=== PATIENT | male | born 1950 | race Caucasian/White ===

== ENCOUNTER 2016-08-25 12:10 | Emergency (ER) | payer BC ==
[2016-08-25] MEDS ORDERED: NS 0.9% 1000 ML* 1,000 ML IV ONE (12:34)
--- NOTE | 2016-08-25 13:33 | RAD ---
INDICATION: CHF and pneumonia. COMPARISON: Comparison is made with a prior chest x-ray study from April 13, 2013. TECHNIQUE: A portable view of the chest was obtained. FINDINGS: The heart appears mildly enlarged and unchanged. The lungs are clear. No pleural effusion is seen. IMPRESSION: NO EVIDENCE FOR ACUTE DISEASE.
[2016-08-25 13:43] LABS: Hematocrit 40 % (42-52); Hemoglobin 13.2 g/dl (14.0-18.0); Mean Corpuscular HGB Conc 33 g/dl (31-36); Mean Corpuscular Hemoglobin 28 pg (27-31); Mean Corpuscular Volume 85 fL (80-94); Mean Platelet Volume 9 um3 (7.4-10.4); Red Blood Count 4.68 10^6/ul (4.0-5.4); Red Cell Distribution Width 19 % (10.5-15); White Blood Count 3.9 10^3/ul (3.5-10.8)
[2016-08-25 13:59] LABS: Albumin 4.6 g/dL (3.2-5.2); BUN/Creatinine Ratio 29.8 (8-20); Calcium 9.9 mg/dL (8.6-10.3); Comments Flag Yes; EGFR African American 185.1 (>60); EGFR Non-African American 143.9 (>60); Globulin 3.4 g/dL (2-4); Magnesium 1.7 mg/dL (1.9-2.7); Potassium 4.2 mmol/L (3.5-5.0); Total Bilirubin 2.6 mg/dL (0.2-1.0)
[2016-08-25 14:00] LABS: Add Diff/Slide Review? Slide Review Added; Troponin I 0.01 ng/mL (<0.04)
[2016-08-25] MEDS ORDERED: Magnesium Sulfate 1 GM IV* 1 GM/100 ML BAG IV ONE (14:23)
[2016-08-25 14:32] LABS: TSH (Thyroid Stimulating Horm) 0.89 mcIU/mL (0.34-5.60)
[2016-08-25] MEDS ORDERED: Midazolam* 1 MG/ML 5 ML VIAL (5 MG) ONE ×2 (14:41→16:06)
[2016-08-25] MEDS ORDERED: fentaNYL* 50 MCG/ML 2 ML VIAL (100 MCG VIAL) ONE (14:42)
[2016-08-25] MEDS ORDERED: Flumazenil* 0.1 MG/ML 5 ML MDV ONE (14:42)
[2016-08-25] MEDS ORDERED: Naloxone* 0.4 MG/ML 1 ML VIAL ONE (14:42)
[2016-08-25 15:00] LABS: Ferritin 173.3 ng/mL (24-336)
[2016-08-25] MEDS ORDERED: LORazepam TAB(*) 1 MG PO ONE (17:53)
[2016-08-25 19:20] VITALS: BP 92/73
--- NOTE | 2016-08-25 22:02 | ED ---
Jyoti Hitchcock Salem, scribed for Santos Timmons MD on 08/25/16 at 1313 . Palpitations / Dysrhythmia - HPI Summary HPI Summary: Patient is a 66 y/o M who presents to the ED with palpitations since 0200 this morning. He states that when he took his pulse at that time and noticed a 14 beat cycle: 12 beats, pause, and then 2 fast ones. He also states that his BP at 0200 was in the 180s-190s/110 and HR 90, and at 0300 it was around 160/90. He reports hot flash, diaphoresis, and SOB, but denies edema, CP, or a hx of A fib. Pt has an appointment with Dr. Cornejo before the end of the month. Pt states that he colpsed earlier this week and was too weak to get up, but conscious. PMHx of Hematomacrosis, HTN, and apnea. He also states that he has had his heart defibrillated twice before. Pt is on Xarelto. - History of Current Complaint Chief Complaint: EDDysrhythmPalp Time Seen by Provider: 08/25/16 12:57 Hx Obtained From: Patient, Family/Cooler Supervisor - Cousin. Onset/Duration: Gradual Onset, Lasting Hours, Still Present Timing: Constant Severity Initially: Moderate Severity Currently: Moderate Character: Fast, Irregular, Skipped Beats Aggravating: Nothing Alleviating: Nothing Associated Signs & Symptoms: Shortness of Breath, Diaphoresis - Allergy/Home Medications Allergies/Adverse Reactions: Allergies Allergy/AdvReac Type Severity Reaction Status Date / Time Morphine Allergy Unknown Nausea And Verified 04/15/14 10:44 Vomiting Ibuprofen Allergy Palpitation Verified 08/25/16 12:45 s PMH/Surg Hx/FS Hx/Imm Hx Endocrine/Hematology History: Reports: Hx Blood Disorders - hemachromatosis Denies: Hx Diabetes, Hx Sickle Cell Disease Cardiovascular History: Reports: Hx Hypercholesterolemia, Hx Hypertension - ON MEDS, Other Cardiovascular Problems/Disorders - A FIB, CARDIOVERSION X 2 Respiratory History: Reports: Other Respiratory Problems/Disorders - PAIN RIGHT EAR Musculoskeletal History: Reports: Hx Back Problems - "Lower back pain" due to one hour commute to work Sensory History: Reports: Hx Cataracts - RIGHT EYE, Hx Contacts or Glasses - READING GLASSES, Hx Vision Problem - vision chgs when iron level go up Denies: Hx Hearing Aid Opthamlomology History: Reports: Hx Cataracts - RIGHT EYE, Hx Contacts or Glasses - READING GLASSES, Hx Vision Problem - vision chgs when iron level go up Neurological History: Reports: Other Neuro Impairments/Disorders - Surgical History Surgery Procedure, Year, and Place: TONSILECTOMY, A CHILD,[facility] [place]. HERNIA, A BABY, [facility] [place]. LEFT EYE RETINAL TEAR, [place] X2. LEFT CATARACT, 09/27/06, [facility] [place]. APPENDECTOMY, AGE 14, [facility]. LEFT WRIST, [facility], AGE 14 OR 15. WISDOM TEETH, AGE 21. Hx Anesthesia Reactions: Yes - "WIth my cornea operation the doctor was merrick HOT FLASHES, SWEATING, DIZZI - Immunization History Date of Tetanus Vaccine: unsure Date of Influenza Vaccine: none Infectious Disease History: No Infectious Disease History: Denies: Traveled Outside the [place] in Last 30 Days - Family History Known Family History: Positive: Cardiac Disease, Other - CA. - Social History Alcohol Use: Daily Alcohol Amount: about 6-- - 7 drinks a day Hx Substance Use: No Substance Use Type: Reports: None Hx Tobacco Use: No Smoking Status (MU): Never Smoked Tobacco Review of Systems Positive: Skin Diaphoresis, Other - "hot flash" Positive: Palpitations, Other - High BP. . Negative: Chest Pain Positive: Shortness Of Breath Positive: Other - Recent fall. . Negative: Edema All Other Systems Reviewed And Are Negative: Yes Physical Exam Triage Information Reviewed: Yes Vital Signs On Initial Exam: Initial Vitals Temp Pulse Resp BP Pulse Ox 97.9 F 75 20 143/81 97 08/25/16 12:12 08/25/16 12:12 08/25/16 12:12 08/25/16 12:12 08/25/16 12:12 Vital Signs Reviewed: Yes Appearance: Positive: Well-Appearing, No Pain Distress Skin: Positive: Warm, Skin Color Reflects Adequate Perfusion, Dry Head/Face: Positive: Normal Head/Face Inspection Eyes: Positive: Normal Neck: Positive: Supple, Nontender Respiratory/Lung Sounds: Positive: Clear to Auscultation, Breath Sounds Present Cardiovascular: Positive: Other - Irregularly irregular heartbeat. Abdomen Description: Positive: Nontender, Soft Bowel Sounds: Positive: Present Musculoskeletal: Positive: Normal Neurological: Positive: Normal Psychiatric: Positive: Normal, Affect/Mood Appropriate - Jean [place] Coma Scale Coma Scale Total: 15 Diagnostics - Vital Signs Vital Signs Temp Pulse Resp BP Pulse Ox 08/25/16 12:39 98.3 F 86 17 142/93 95 08/25/16 12:15 97.9 F 79 20 143/81 95 08/25/16 12:12 97.9 F 75 20 143/81 97 - Laboratory Lab Results: Lab Results 08/25/16 08/25/16 08/25/16 Range/Units 13:35 13:35 13:35 WBC 3.9 (3.5-10.8) 10^3/ul RBC 4.68 (4.0-5.4) 10^6/ul Hgb 13.2 L (14.0-18.0) g/dl Hct 40 L (42-52) % MCV 85 (80-94) fL MCH 28 (27-31) pg MCHC 33 (31-36) g/dl RDW 19 H (10.5-15) % Plt Count 52 L (150-450) 10^3/ul MPV 9 (7.4-10.4) um3 Neut % (Auto) 67.4 (38-83) % Lymph % (Auto) 16.6 L (25-47) % Trimble % (Auto) 12.3 H (1-9) % Eos % (Auto) 0.5 (0-6) % Baso % (Auto) 3.2 H (0-2) % Absolute Neuts (auto) 2.7 (1.5-7.7) 10^3/ul Absolute Lymphs (auto) 0.7 L (1.0-4.8) 10^3/ul Absolute Monos (auto) 0.5 (0-0.8) 10^3/ul Absolute Eos (auto) 0 (0-0.6) 10^3/ul Absolute Basos (auto) 0.1 (0-0.2) 10^3/ul Absolute Nucleated RBC 0 10^3/ul Nucleated RBC % 0 INR (Anticoag Therapy) (0.89-1.11) Sodium 134 (133-145) mmol/L Potassium 4.2 (3.5-5.0) mmol/L Chloride 100 L (101-111) mmol/L Carbon Dioxide 24 (22-32) mmol/L Anion Gap 10 (2-11) mmol/L BUN 17 (6-24) mg/dL Creatinine 0.57 L (0.67-1.17) mg/dL Est GFR ( Amer) 185.1 (>60) Est GFR (Non-Af Amer) 143.9 (>60) BUN/Creatinine Ratio 29.8 H (8-20) Glucose 115 H (70-100) mg/dL Lactic Acid 1.3 (0.5-2.0) mmol/L Calcium 9.9 (8.6-10.3) mg/dL Magnesium 1.7 L (1.9-2.7) mg/dL Ferritin 173.3 (24-336) ng/mL Total Bilirubin 2.60 H (0.2-1.0) mg/dL AST 152 H (13-39) U/L ALT 56 H (7-52) U/L Alkaline Phosphatase 52 (34-104) U/L Troponin I 0.01 (<0.04) ng/mL B-Natriuretic Peptide ( - 100) pg/mL Total Protein 8.0 (6.4-8.9) g/dL Albumin 4.6 (3.2-5.2) g/dL Globulin 3.4 (2-4) g/dL Albumin/Globulin Ratio 1.4 (1-3) TSH 0.89 (0.34-5.60) mcIU/mL 08/25/16 08/25/16 Range/Units 13:35 13:35 WBC (3.5-10.8) 10^3/ul RBC (4.0-5.4) 10^6/ul Hgb (14.0-18.0) g/dl Hct (42-52) % MCV (80-94) fL MCH (27-31) pg MCHC (31-36) g/dl RDW (10.5-15) % Plt Count (150-450) 10^3/ul MPV (7.4-10.4) um3 Neut % (Auto) (38-83) % Lymph % (Auto) (25-47) % Trimble % (Auto) (1-9) % Eos % (Auto) (0-6) % Baso % (Auto) (0-2) % Absolute Neuts (auto) (1.5-7.7) 10^3/ul Absolute Lymphs (auto) (1.0-4.8) 10^3/ul Absolute Monos (auto) (0-0.8) 10^3/ul Absolute Eos (auto) (0-0.6) 10^3/ul Absolute Basos (auto) (0-0.2) 10^3/ul Absolute Nucleated RBC 10^3/ul Nucleated RBC % INR (Anticoag Therapy) 1.52 H (0.89-1.11) Sodium (133-145) mmol/L Potassium (3.5-5.0) mmol/L Chloride (101-111) mmol/L Carbon Dioxide (22-32) mmol/L Anion Gap (2-11) mmol/L BUN (6-24) mg/dL Creatinine (0.67-1.17) mg/dL Est GFR ( Amer) (>60) Est GFR (Non-Af Amer) (>60) BUN/Creatinine Ratio (8-20) Glucose (70-100) mg/dL Lactic Acid (0.5-2.0) mmol/L Calcium (8.6-10.3) mg/dL Magnesium (1.9-2.7) mg/dL Ferritin (24-336) ng/mL Total Bilirubin (0.2-1.0) mg/dL AST (13-39) U/L ALT (7-52) U/L Alkaline Phosphatase (34-104) U/L Troponin I (<0.04) ng/mL B-Natriuretic Peptide 282 H ( - 100) pg/mL Total Protein (6.4-8.9) g/dL Albumin (3.2-5.2) g/dL Globulin (2-4) g/dL Albumin/Globulin Ratio (1-3) TSH (0.34-5.60) mcIU/mL Result Diagrams: 08/25/16 13:35 08/25/16 13:35 Diagnostic Studies Comment: Trop: 0.01 Lab Statement: Any lab studies that have been ordered have been reviewed, and results considered in the medical decision making process. - Radiology CXR Radiology Interpretation Completed By: Radiologist - IMPRESSION: NO EVIDENCE FOR ACUTE DISEASE. - EKG 1222 EKG Interpretation: A Fib @ 77bpm. Controlled rate. 1617 EKG Rhythm: Sinus Rhythm - @ 65bpm. Re-Evaluation - Re-Evaluation First Eval Re-Evaluation Time: 17:53 Comment: Updated pt. Course/Dx - Course Course Of Treatment: Mr. Sarabia presented in A-Fib and relatively asymptomatic. He had an episode of collapsing on the way to the bathroom after awakening and being too weak to get up until after he had slept awhile. This was several days ago. He is a big drinker, at least seven drinks a day. He is on xarelto. He was found to be thrombocytopenic but otherwise his labs were OK. Dr. Moore came and caardioverted him. He woke up slowly and was quite tremorous which I believe was from ETOH withdrawal. He wanted to go home and was not willing to stay in the hospital. - Diagnoses Provider Diagnoses: Atrial fibrillation, Alcohol withdrawal - Physician Notifications Discussed Care Of Patient With: Dmitri Moore Time Discussed With Above Provider: 14:24 Instructed by Provider To: Other - Discussed case. - Critical Care Time Critical Care Time: 30-74 min Discharge - Discharge Plan Condition: Stable Disposition: HOME Patient Education Materials: A-fib (Atrial Fibrillation) (ED) Referrals: Olga Cornejo MD [Medical Doctor] - Harsh Harman MD [Primary Care Provider] - Additional Instructions: Please follow up with Dr. Cornejo. The documentation as recorded by the Jyoti seymour Salem accurately reflects the service I personally performed and the decisions made by me, Santos Timmons MD.
--- NOTE | 2016-08-26 00:33 | CONS ---
CC: Harsh Harman MD; Olga Cornejo MD CARDIOLOGY CONSULTATION: DATE OF CONSULT: 08/25/16 REFERRAL PHYSICIAN: Santos Timmons MD REASON FOR CARDIOLOGY CONSULTATION: Recurrence of atrial fibrillation. HISTORY OF PRESENT ILLNESS: I was kindly asked to see this patient by Dr. Timmons of for Cardiology consultation given that the patient had recurrent atrial fibrillation approximately 12 hours ago and potential for electrical cardioversion in the ER. The patient states that at 3 a.m. (I am seeing him at about 3 p.m. of the same day), but 3 a.m. earlier this morning, he woke up and had a recurrence of his atrial fibrillation. While he does not have palpitations, he did feel "not right" with some shortness of breath, which is characteristic of his atrial fibrillation and he has some irregular heart beats when he checked his pulse. This persisted and he called his primary care physician's office at [facility], who recommended that he come to the emergency room. The patient has no chest pain, no shortness of breath. The patient has a history of atrial fibrillation. He has had 2 cardioversions, the initial one in 2008 when he was diagnosed with atrial fibrillation and then a second cardioversion in 2012. He states he follows with my partner, Dr. Olga Cornejo, but has not seen her recently. He does state he has a scheduled appointment with Dr. Cornejo later this month. PAST MEDICAL HISTORY: Other past medical history includes hypertension; alcohol overuse; obstructive sleep apnea, on CPAP; depression as well as hemochromatosis. OUTPATIENT MEDICATIONS: 1. Xarelto 20 mg p.o. q.h.s. 2. Atenolol 75 mg once a day. 3. Aspirin 81 mg once a day. ALLERGIES: To medications are IBUPROFEN, which he states causes atrial fibrillation; MORPHINE, he states causes him to vomit. He denies shrimp, seafood, or dye allergy. FAMILY HISTORY: His father had an AK at the age of 59, had a history of diabetes and his father at the age of 80 from bone cancer. His mother at an unknown age from the history of stroke. SOCIAL HISTORY: He is and lives alone. He does have a cousin, whom I met, Ms. Iris Linda, with whom the patient gave his verbal consent for me to discuss his medical care with freely, who does look after him as does he for her as Ms. Linda is and her from a history of colon cancer and then AK. The patient does not smoke cigarettes. He drinks 6 to 7 drinks per day with shots of hard liquor. He does not use illicit drugs. He does not drink coffee and has less than once a week a Coke, and he ate some chocolate yesterday. He does not use Sudafed. He has had a DUI 3 years ago and had alcohol treatment for that. 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 He does not do regular exercise. REVIEW OF SYSTEMS: He has a history of sleep apnea for which he uses CPAP. He denies a history of stroke, cancer, vomiting up blood, coughing up blood, bright red blood per rectum, bleeding stomach ulcers, renal calculi, cholelithiasis, asthma, emphysema, pneumonia, tuberculosis, home oxygen use, diabetes. He has hypertension. He denies prior AK, congestive heart failure, cardiac surgery, cardiac murmurs. He does not have palpitations. He has a history of depression. He denies lupus, psoriasis, seizures, Parkinson's disease , myasthenia gravis, thyroid disorders, liver disorders, kidney disorders, claudication symptoms, pulmonary emboli, deep venous thrombosis, peripheral arterial disease, peripheral edema. He rarely has GERD. All other review of systems are negative except as described above. The patient states that he has some issues of forgetting to take his Xarelto at night, but always then takes it the next morning, so it sounds like in the last 90 days, he has had 90 pills of Xarelto. PHYSICAL EXAM: Pulse is 102, blood pressure is 146/110, respiratory rate 18. On general exam, he is a pleasant gentleman, in no acute distress. HEENT: Shows the cranium is normocephalic and atraumatic. He has moist mucosal membranes. Neck veins are not distended. He appears quite anxious. No carotid bruits visible. Skin: Warm and perfused. Affect appropriate. He does appear nervous, but is oriented. No significant kyphoscoliosis on back exam. Lungs are clear to auscultation. No wheezes. No rales. Cardiac Exam: S1, S2. Irregular rate, controlled, soft holosystolic murmur heard without radiation. There are no rubs, or gallops. PMI is nondisplaced. Abdomen: Soft , nondistended. Appears benign. Extremities: Without significant edema. Pulses appear grossly intact. He does appear to have a resting tremor and somewhat mask-like facies. DIAGNOSTIC STUDIES/LAB DATA: White blood cell count 3.9, hematocrit 40, platelet count 52 and they [place] as 978[address] earlier this year, . INR of 1.52. Sodium 134, potassium 4.2, chloride 100, bicarbonate 24, BUN 17, creatinine 0.57, magnesium 1.7. ALT 56. BNP 282. TSH 0.89. A 12-lead EKG reviewed, 08/25/16, at 1222, which shows atrial fibrillation at 77 beats per minute with borderline left axis deviation. IMPRESSION: Mr. Sarabia is a 66-year-old gentleman with alcohol overuse who has had recurrent atrial fibrillation within the past 12 hours. I have reviewed this in detail with the patient. We are making the following recommendations with which he is in agreement. RECOMMENDATIONS: 1. After a detailed risks, benefits, alternative analysis, we will proceed with cardioversion and I would refer the reader to that procedure note. 2. Assuming cardioversion successful and the patient otherwise stable, we should be able to discharge the patient from the ER to home with his cousin, Ms. Linda who states she can stay with the patient. The patient should continue Xarelto, atenolol, and while he takes aspirin low dose, we have asked him to follow that up with his special officer, Dr. Cornejo, with whom he will follow up in a few weeks including regarding utility of continuing aspirin while he is on an oral anticoagulant 3. Recommend keeping magnesium greater than 2 and the patient did receive IV magnesium supplement in the ER today. 4. Strongly recommended to the patient to discontinue alcohol use as that is a potent promoter of recurrences of his atrial fibrillation. I am also concerned about his platelet count being low albeit he has a history of that. He may follow that up with his PCP. 5. Other management as per the emergency medicine service and I have discussed the case with Dr. Santos Timmons. Thank you for this kind cardiology consultation opportunity. Please call me if any questions or concerns. [id number]/[facility] #: [id number] [facility]
--- NOTE | 2016-08-26 05:59 | PRO ---
CC: Dr. Olga Cornejo; Dr. Harsh Harman CARDIOLOGY PROCEDURE NOTE: ELECTRICAL CARDIOVERSION. DATE OF PROCEDURE: 08/25/16 REFERRING PHYSICIAN: Dr. Santos Timmons. CHIEF COMPLAINT: The patient has recurrence of atrial fibrillation. INDICATION: The patient had recurrent of his atrial fibrillation approximately 12 to 13 hours earlier today. He was seen by myself for cardiology consultation (I would refer the reader to that documentation as well) and the decision has been made to proceed with cardioversion. As an outpatient, he is maintained on Xarelto, which he has been compliant with, atenolol and low-dose aspirin as per his campus recruiting intern, Dr. Olga Cornejo. The patient does have a history of atrial fibrillation with initial diagnosis in 2008 at the time of cardioversion and then he had second cardioversion in 2012 with my partner, Dr. Olga Cornejo. We reviewed the procedure in detail. I then reviewed the benefits of cardioversion being more definitive resumption of normal sinus rhythm and alternatives being continued heart rate control with anticoagulation. The patient wished to proceed with cardioversion, which I felt was appropriate. We then reviewed the risks of cardioversion and the patient is aware that I cannot anticipate all risks in all patients, but the litany of risks include oversedation from conscious sedation, risk of aspiration pneumonia from regurgitation of stomach contents (we have confirmed that the patient has not had any food to eat for at least approximately 7 hours), risks of induction of cardiac arrhythmias including tachyarrhythmias and/or madeline dysrhythmias requiring pacemaker placement, risk of chest wall abrasion, risk of cardioembolic phenomena including stroke, although should be less likely given his overall compliance with Xarelto and duration of AF less than 48 hours. The patient expressed understanding of this risks, benefit, and alternativ analysis , had the opportunity to answer questions, all of which were answered to his full satisfaction. He then stated in a clear, competent, and coherent fashion that he wished to go forward with the cardioversion procedure. CARDIOVERSION PROCEDURE: Patient had hands-free patches placed in the right posterior, left anterior position. The appropriate time-out procedure was performed with appropriate identification of the patient, procedure, physician, documentation with safety concern noted the patient's history of sleep apnea and history of alcohol use likely requiring increased amount of sedation while benefiting from close oxygen saturation monitoring, which the team and I prepared to follow and the patient did participate in this time-out procedure. He received a total of 12 mg of Versed and 100 mcg of fentanyl utilizing titrated conscious sedation with good effect and that is in total for the entire procedure. He initially received a cardioversion attempt by myself of 50 joules of biphasic energy with persistent atrial fibrillation. I then replaced his hands-free patches to the left posterior, right anterior position and he received a second cardioversion attempt of 200 joules, biphasic, synchronized with successful resumption of normal sinus rhythm. This was confirmed on repeat EKG demonstrating sinus rhythm with possible biatrial enlargement and left axis deviation.No complications noted and the patient will be recovered in the emergency room where the procedure was performed and then discharged home as long as felt appropriate by EM medical staff. IMPRESSION: 1. Successful resumption of normal sinus rhythm from atrial fibrillation utilizing electrical cardioversion. Long-term patient will continue his atenolol 75 mg once a day, Xarelto 20 mg once a day, aspirin 81 mg once a day ( he may follow up continued utility of aspirin use in addition to his OAC with his usual campus recruiting intern Dr. Cornejo whom he states has advised him to take both the Xarelto and the aspirin). The patient already has cardiology follow up scheduled with his campus recruiting intern, Dr. Cornejo in several weeks. We have also recommended the patient discontinue alcohol use. 2. The patient's magnesium was 1.7 on evaluation in the emergency room, so he had received supplemental magnesium intravenously in the emergency room immediately prior to the cardioversion and that should be followed up as an outpatient as well. Please see also full cardiology consultation completed earlier today. The above was discussed in detail with the patient following the cardioversion as well as with the patient's verbal consent, his cousin, Ms. Iris Linda. [id number]/[facility] #: [id number] [facility]oph[facility]
== END 2016-08-25 19:52 | disposition home or self-care (01) ==
LOC: ED 12:10
DX: R06.02 Shortness of breath (principal); R61 Generalized hyperhidrosis; R00.2 Palpitations; I48.91 Unspecified atrial fibrillation; F10.239 Alcohol dependence with withdrawal, unspecified
CPT/HCPCS: 36415; 71010; 80053; 82728; 83605; 83735; 83880; 84443; 84484; 85025; 85610; 92960; 93005; 99282; A9270-GY; J2250; J2310; J3010

== ENCOUNTER 2017-01-07 23:23 | Emergency (ER) | payer BC ==
[2017-01-08] MEDS ORDERED: NS 0.9% 1000 ML* 1,000 ML IV ONE (00:09)
[2017-01-08] MEDS ORDERED: Thiamine IV 100 MG, Folic Acid IV* 1 MG, Multiple Vitamin IV ADULT* 10 ML in NS 0.9% 10... IV ONE (00:09)
[2017-01-08 00:38] LABS: Hematocrit 40 % (42-52); Hemoglobin 13.3 g/dl (14.0-18.0); Mean Corpuscular HGB Conc 33 g/dl (31-36); Mean Corpuscular Hemoglobin 28 pg (27-31); Mean Corpuscular Volume 84 fL (80-94); Mean Platelet Volume 8 um3 (7.4-10.4); Red Blood Count 4.73 10^6/ul (4.0-5.4); Red Cell Distribution Width 18 % (10.5-15); White Blood Count 3.2 10^3/ul (3.5-10.8)
[2017-01-08 00:42] LABS: Add Diff/Slide Review? Slide Review Added; Comments Flag Yes
[2017-01-08 00:53] LABS: Albumin 3.9 g/dL (3.2-5.2); BUN/Creatinine Ratio 21.7 (8-20); Calcium 9.4 mg/dL (8.6-10.3); EGFR African American 174.4 (>60); EGFR Non-African American 135.6 (>60); Globulin 3.3 g/dL (2-4); Magnesium 1.8 mg/dL (1.9-2.7); Potassium 4.1 mmol/L (3.5-5.0); Total Bilirubin 0.5 mg/dL (0.2-1.0); Total Protein 7.2 g/dL (6.4-8.9)
[2017-01-08 00:54] LABS: Troponin I 0.02 ng/mL (<0.04)
[2017-01-08 01:16] LABS: TSH (Thyroid Stimulating Horm) 0.67 mcIU/mL (0.34-5.60)
[2017-01-08] MEDS ORDERED: Magnesium Sulfate 2 GM IV* 2 GM/50 ML BAG IVPB ONE (01:19)
--- NOTE | 2017-01-08 02:40 | ED ---
Brett Hitchcock Thomas, scribed for Migel Gardiner MD on 01/08/17 at 0038 . Palpitations / Dysrhythmia - HPI Summary HPI Summary: The pt is a 66 y/o M with a Hx of A-Fib presenting to the ED c/o an irregular pulse that lasted for over an hour but is relieved in the ED. Pt reports pulse [employer] of 85bpm and blood pressure of 138/86 mmHg. Pt additionally c/o clamminess and not feeling right. Pt denies current CP. The patient has had 3 cardioversions, with the most recent happening a year ago. He takes 20mg Xarelto , 75mg Atenolol, and 81mg ASA daily. He uses alcohol daily and most recently drank at 16:00 today. Pt has had similar episodes lasting for only 5-10 minutes. - History of Current Complaint Chief Complaint: EDDysrhythmPalp Time Seen by Provider: 01/07/17 23:41 Hx Obtained From: Patient Onset/Duration: Sudden Onset, Lasting Minutes - 60 Timing: Constant - for an hour Severity Initially: Moderate Severity Currently: None Character: Irregular Aggravating: Nothing Alleviating: Other - Spontaneus resolution Associated Signs & Symptoms: Negative Related History: Similar Episode/Dx as - episodes lasting for only 5-10 minutes - Allergy/Home Medications Allergies/Adverse Reactions: Allergies Allergy/AdvReac Type Severity Reaction Status Date / Time Morphine Allergy Unknown Nausea And Verified 04/15/14 10:44 Vomiting Ibuprofen Allergy Palpitation Verified 08/25/16 12:45 s PMH/Surg Hx/FS Hx/Imm Hx Previously Healthy: No Endocrine/Hematology History: Reports: Hx Blood Disorders - hemachromatosis Denies: Hx Diabetes, Hx Sickle Cell Disease Cardiovascular History: Reports: Hx Hypercholesterolemia, Hx Hypertension - ON MEDS, Other Cardiovascular Problems/Disorders - A FIB, CARDIOVERSION X 2 Respiratory History: Reports: Other Respiratory Problems/Disorders - PAIN RIGHT EAR Musculoskeletal History: Reports: Hx Back Problems - "Lower back pain" due to one hour commute to work Sensory History: Reports: Hx Cataracts - RIGHT EYE, Hx Contacts or Glasses - READING GLASSES, Hx Vision Problem - vision chgs when iron level go up Denies: Hx Hearing Aid Opthamlomology History: Reports: Hx Cataracts - RIGHT EYE, Hx Contacts or Glasses - READING GLASSES, Hx Vision Problem - vision chgs when iron level go up Neurological History: Reports: Other Neuro Impairments/Disorders - Surgical History Surgery Procedure, Year, and Place: TONSILECTOMY, A CHILD,[facility] [place]. HERNIA, A BABY, [facility] [place]. LEFT EYE RETINAL TEAR, [place] X2. LEFT CATARACT, 09/27/06, [facility] [place]. APPENDECTOMY, AGE 14, [facility] [place]. LEFT WRIST, [facility], AGE 14 OR 15. WISDOM TEETH, AGE 21. Hx Anesthesia Reactions: Yes - "WIth my cornea operation the doctor was merrick HOT FLASHES, SWEATING, DIZZI - Immunization History Date of Tetanus Vaccine: unsure Date of Influenza Vaccine: none Infectious Disease History: No Infectious Disease History: Denies: Traveled Outside the [place] in Last 30 Days - Family History Known Family History: Positive: Cardiac Disease, Other - [place]. - Social History Lives: Alone Alcohol Use: Daily Alcohol Amount: about 6-- - 7 drinks a day Hx Substance Use: No Substance Use Type: Reports: None Hx Tobacco Use: No Smoking Status (MU): Never Smoked Tobacco Review of Systems Positive: Other - Claminess, "not feeling right" Positive: Palpitations. Negative: Chest Pain All Other Systems Reviewed And Are Negative: Yes Physical Exam - Summary Physical Exam Summary: VITAL SIGNS: Reviewed. GENERAL: Patient is a well-developed and nourished male who is lying comfortable in the stretcher. Patient is not in any acute respiratory distress. He has been drinking. HEAD AND FACE: No signs of trauma. No ecchymosis, hematomas or skull depressions. No sinus tenderness. EYES: PERRLA, EOMI x 2, No injected conjunctiva, no nystagmus. EARS: Hearing grossly intact. Ear canals and tympanic membranes are within normal limits. MOUTH: Oropharynx within normal limits. NECK: Supple, trachea is midline, no adenopathy, no JVD, no carotid bruit, no c- spine tenderness, neck with full ROM. CHEST: Symmetric, no tenderness at palpation LUNGS: Clear to auscultation bilaterally. No wheezing or crackles. CVS: Regular rate and rhythm, S1 and S2 present, no murmurs or gallops appreciated. There are PVCs on the monitor. ABDOMEN: Soft, non-tender. No signs of distention. No rebound no guarding, and no masses palpated. Bowel sounds are normal. EXTREMITIES: FROM in all major joints, no edema, no cyanosis or clubbing. NEURO: Alert and oriented x 3. No acute neurological deficits. Speech is normal and follows commands. SKIN: Dry and warm. His face is flushed. Triage Information Reviewed: Yes Vital Signs On Initial Exam: Initial Vitals Temp Pulse Resp BP Pulse Ox 98.3 F 81 14 161/99 93 01/07/17 23:26 01/07/17 23:26 01/07/17 23:26 01/07/17 23:26 01/07/17 23:26 Vital Signs Reviewed: Yes - [place] Pierre Coma Scale Coma Scale Total: 15 Diagnostics - Vital Signs Vital Signs Temp Pulse Resp BP Pulse Ox 01/07/17 23:49 71 01/07/17 23:26 98.3 F 81 14 161/99 93 - Laboratory Lab Results: Lab Results 01/08/17 01/08/17 Range/Units 00:26 00:26 WBC 3.2 L (3.5-10.8) 10^3/ul RBC 4.73 (4.0-5.4) 10^6/ul Hgb 13.3 L (14.0-18.0) g/dl Hct 40 L (42-52) % MCV 84 (80-94) fL MCH 28 (27-31) pg MCHC 33 (31-36) g/dl RDW 18 H (10.5-15) % Plt Count 94 L (150-450) 10^3/ul MPV 8 (7.4-10.4) um3 Neut % (Auto) 49.3 (38-83) % Lymph % (Auto) 30.5 (25-47) % Hooker % (Auto) 16.5 H (1-9) % Eos % (Auto) 3.0 (0-6) % Baso % (Auto) 0.7 (0-2) % Absolute Neuts (auto) 1.6 (1.5-7.7) 10^3/ul Absolute Lymphs (auto) 1.0 (1.0-4.8) 10^3/ul Absolute Monos (auto) 0.5 (0-0.8) 10^3/ul Absolute Eos (auto) 0.1 (0-0.6) 10^3/ul Absolute Basos (auto) 0 (0-0.2) 10^3/ul Absolute Nucleated RBC 0.01 10^3/ul Nucleated RBC % 0.2 Sodium 136 (133-145) mmol/L Potassium 4.1 (3.5-5.0) mmol/L Chloride 104 (101-111) mmol/L Carbon Dioxide 24 (22-32) mmol/L Anion Gap 8 (2-11) mmol/L BUN 13 (6-24) mg/dL Creatinine 0.60 L (0.67-1.17) mg/dL Est GFR ( Amer) 174.4 (>60) Est GFR (Non-Af Amer) 135.6 (>60) BUN/Creatinine Ratio 21.7 H (8-20) Glucose 163 H (70-100) mg/dL Calcium 9.4 (8.6-10.3) mg/dL Magnesium 1.8 L (1.9-2.7) mg/dL Total Bilirubin 0.50 (0.2-1.0) mg/dL AST 123 H (13-39) U/L ALT 67 H (7-52) U/L Alkaline Phosphatase 87 (34-104) U/L Troponin I 0.02 (<0.04) ng/mL Total Protein 7.2 (6.4-8.9) g/dL Albumin 3.9 (3.2-5.2) g/dL Globulin 3.3 (2-4) g/dL Albumin/Globulin Ratio 1.2 (1-3) TSH 0.67 (0.34-5.60) mcIU/mL Serum Alcohol 225 H (<10) mg/dL Result Diagrams: 01/08/17 00:26 01/08/17 00:26 Lab Statement: Any lab studies that have been ordered have been reviewed, and results considered in the medical decision making process. - EKG 23:41 Cardiac Rate: NL EKG Rhythm: Sinus Rhythm Ectopy: PVCs EKG Interpretation: 76 BPM. First Degree AV block. Normal axis. No ischemic Changes. Course/Dx - Course Assessment/Plan: The pt is a 66 y/o M with a Hx of A-Fib presenting to the ED c/ o an irregular pulse that lasted for over an hour but is relieved in the ED. Pt reports pulse [employer] of 85bpm and blood pressure of 138/86 mmHg. Pt additionally c/ o clamminess and not feeling right. Pt denies current CP. The patient has had 3 cardioversions, with the most recent happening a year ago. He takes 20mg Xarelto, 75mg Atenolol, and 81mg ASA daily. He uses alcohol daily and most recently drank at 16:00 today. Pt has had similar episodes lasting for only 5- 10 minutes. Bloodwork and EKG were obtained. The patient has been sinus in the emergency department. 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 - Diagnoses Provider Diagnoses: Alcohol intoxication, Alcohol-induced A-Fib Discharge - Discharge Plan Condition: Stable Disposition: HOME Patient Education Materials: A-fib (Atrial Fibrillation) (ED), Alcohol Intoxication (ED), Alcohol Dependence (ED) Referrals: Harsh Harman MD [Primary Care Provider] - 2 Days The documentation as recorded by the Brett seymour Thomas accurately reflects the service I personally performed and the decisions made by me, Migel Gardiner MD.
[2017-01-08 02:56] VITALS: BP 155/94
== END 2017-01-08 02:58 | disposition home or self-care (01) ==
LOC: ED 23:23
DX: I48.91 Unspecified atrial fibrillation (principal); F10.129 Alcohol abuse with intoxication, unspecified; Z79.82 Long term (current) use of aspirin; E78.00 Pure hypercholesterolemia, unspecified; Z88.5 Allergy status to narcotic agent; Y90.7 Blood alcohol level of 200-239 mg/100 ml
CPT/HCPCS: 36415; 80053; 80320; 83735; 84443; 84484; 85025; 93005; G0480; J3411; J3475

== ENCOUNTER → 2017-01-08 12:02 | Emergency (ER) | payer BC ==
[2017-01-08 12:59] LABS: Hematocrit 41 % (42-52); Hemoglobin 13.5 g/dl (14.0-18.0); Mean Corpuscular HGB Conc 33 g/dl (31-36); Mean Corpuscular Hemoglobin 28 pg (27-31); Mean Corpuscular Volume 85 fL (80-94); Mean Platelet Volume 9 um3 (7.4-10.4); Red Blood Count 4.89 10^6/ul (4.0-5.4); Red Cell Distribution Width 17 % (10.5-15); White Blood Count 4.1 10^3/ul (3.5-10.8)
[2017-01-08 13:00] LABS: Comments Flag Yes
[2017-01-08 13:19] LABS: Albumin 4.2 g/dL (3.2-5.2); BUN/Creatinine Ratio 14.8 (8-20); Calcium 9.3 mg/dL (8.6-10.3); EGFR Non-African American 153.2 (>60); Globulin 3.6 g/dL (2-4); Magnesium 1.9 mg/dL (1.9-2.7); Potassium 3.7 mmol/L (3.5-5.0); Total Bilirubin 0.8 mg/dL (0.2-1.0); Total Protein 7.8 g/dL (6.4-8.9)
[2017-01-08 13:20] LABS: Troponin I 0.01 ng/mL (<0.04)
--- NOTE | 2017-01-08 13:45 | RAD ---
INDICATION: Palpitations COMPARISON: Most recent comparison chest x-ray August 25, 2016 TECHNIQUE: PA and lateral views of the chest were obtained. FINDINGS: The heart and mediastinum are normal in size and contour. The lungs are grossly clear. There is no evidence of large pleural effusion. Visualized bones are normal for the patient's age. There is no radiographic evidence of free air beneath the diaphragm IMPRESSION: No radiographic evidence of acute cardiopulmonary disease.
[2017-01-08 13:52] LABS: TSH (Thyroid Stimulating Horm) 0.6 mcIU/mL (0.34-5.60)
[2017-01-08 14:12] LABS: Urine Bacteria Absent (Absent); Urine Bilirubin Negative (Negative); Urine Glucose Negative (Negative); Urine Nitrite Negative (Negative)
[2017-01-08 14:50] VITALS: BP 143/95
--- NOTE | 2017-01-08 18:37 | ED ---
Lorena Hitchcock Alfonso, scribed for Mulugeta Myers MD on 01/08/17 at 1245 . Palpitations / Dysrhythmia - HPI Summary HPI Summary: This patient is a 66 year old M presenting to [facility] accompanied by with a chief complaint of intermittent irregular and pounding palpitations worse since this morning. He was at [facility] last night with diagnoses of alcohol intoxication and alcohol-induced A-Fib. The patient rates the pain 0/10 in severity. Symptoms aggravated by nothing. Symptoms alleviated by spontaneous resolution. He takes 20 mg Xarelto, 75 mg atenolol, and 81 mg ASA. Patient reports tremors, and diaphoresis. Patient denies CP, and SOB. - History of Current Complaint Chief Complaint: EDDysrhythmPalp Time Seen by Provider: 01/08/17 12:29 Hx Obtained From: Patient Onset/Duration: Sudden Onset, Lasting Hours, Resolved Timing: Constant Character: Irregular, Pounding Aggravating: Nothing Alleviating: Other - Spontaneous resolution Associated Signs & Symptoms: Diaphoresis - Allergy/Home Medications Allergies/Adverse Reactions: Allergies Allergy/AdvReac Type Severity Reaction Status Date / Time Morphine Allergy Unknown Nausea And Verified 04/15/14 10:44 Vomiting Ibuprofen Allergy Palpitation Verified 08/25/16 12:45 s Home Medications: Home Medications Atenolol TAB* [Tenormin TAB* 50 MG] 75 mg PO DAILY 01/08/17 [History Confirmed 01/08/17] PMH/Surg Hx/FS Hx/Imm Hx Endocrine/Hematology History: Reports: Hx Blood Disorders - hemachromatosis Denies: Hx Diabetes, Hx Sickle Cell Disease Cardiovascular History: Reports: Hx Hypercholesterolemia, Hx Hypertension - ON MEDS, Other Cardiovascular Problems/Disorders - A FIB, CARDIOVERSION X 2 Respiratory History: Reports: Other Respiratory Problems/Disorders - PAIN RIGHT EAR Musculoskeletal History: Reports: Hx Back Problems - "Lower back pain" due to one hour commute to work Sensory History: Reports: Hx Cataracts - RIGHT EYE, Hx Contacts or Glasses - READING GLASSES, Hx Vision Problem - vision chgs when iron level go up Denies: Hx Hearing Aid Opthamlomology History: Reports: Hx Cataracts - RIGHT EYE, Hx Contacts or Glasses - READING GLASSES, Hx Vision Problem - vision chgs when iron level go up Neurological History: Reports: Other Neuro Impairments/Disorders - Surgical History Surgery Procedure, Year, and Place: TONSILECTOMY, A CHILD,[facility] [place]. HERNIA, A BABY, [facility] [place]. LEFT EYE RETINAL TEAR, [place] X2. LEFT CATARACT, 09/27/06, [facility] [place]. APPENDECTOMY, AGE 14, [facility] [place]. LEFT WRIST, [facility] [place], AGE 14 [place] 15. WISDOM TEETH, AGE 21. Hx Anesthesia Reactions: Yes - "WIth my cornea operation the doctor was merrick HOT FLASHES, SWEATING, DIZZI - Immunization History Date of Tetanus Vaccine: unsure Date of Influenza Vaccine: none Infectious Disease History: No Infectious Disease History: Denies: Traveled Outside the US in Last 30 Days - Family History Known Family History: Positive: Cardiac Disease, Other - [place]. - Social History Alcohol Use: Daily Alcohol Amount: about 6-- - 7 drinks a day Hx Substance Use: No Substance Use Type: Reports: None Hx Tobacco Use: No Smoking Status (MU): Never Smoked Tobacco Review of Systems Positive: Skin Diaphoresis, Other - tremors. Negative: Fever Positive: Palpitations. Negative: Chest Pain Negative: Shortness Of Breath All Other Systems Reviewed And Are Negative: Yes Physical Exam - Summary Physical Exam Summary: VITAL SIGNS: Reviewed. GENERAL: Patient is a well-developed and nourished male who is lying comfortable in the stretcher. Patient is not in any acute respiratory distress. HEAD AND FACE: No signs of trauma. No ecchymosis, hematomas or skull depressions. No sinus tenderness. EYES: PERRLA, EOMI x 2, No injected conjunctiva, no nystagmus. EARS: Hearing grossly intact. Ear canals and tympanic membranes are within normal limits. MOUTH: Oropharynx within normal limits. NECK: Supple, trachea is midline, no adenopathy, no JVD, no carotid bruit, no c- spine tenderness, neck with full ROM. CHEST: Symmetric, no tenderness at palpation LUNGS: Clear to auscultation bilaterally. No wheezing or crackles. CVS: Regular rate and rhythm, S1 and S2 present, no murmurs or gallops appreciated. ABDOMEN: Soft, non-tender. No signs of distention. No rebound no guarding, and no masses palpated. Bowel sounds are normal. EXTREMITIES: FROM in all major joints, no edema, no cyanosis or clubbing. NEURO: Alert and oriented x 3. No acute neurological deficits. Speech is normal and follows commands. SKIN: Dry and warm Triage Information Reviewed: Yes Vital Signs On Initial Exam: Initial Vitals Temp Pulse Resp BP Pulse Ox 96.3 F 88 16 161/97 98 01/08/17 12:03 01/08/17 12:03 01/08/17 12:03 01/08/17 12:03 01/08/17 12:03 Vital Signs Reviewed: Yes Diagnostics - Vital Signs Vital Signs Temp Pulse Resp BP Pulse Ox 01/08/17 12:26 67 19 93 01/08/17 12:03 96.3 F 88 16 161/97 98 - Laboratory Lab Results: Lab Results 01/08/17 01/08/17 01/08/17 Range/Units 12:37 12:37 12:37 WBC 4.1 (3.5-10.8) 10^3/ul RBC 4.89 (4.0-5.4) 10^6/ul Hgb 13.5 L (14.0-18.0) g/dl Hct 41 L (42-52) % MCV 85 (80-94) fL MCH 28 (27-31) pg MCHC 33 (31-36) g/dl RDW 17 H (10.5-15) % Plt Count 98 L (150-450) 10^3/ul MPV 9 (7.4-10.4) um3 Neut % (Auto) 68.6 (38-83) % Lymph % (Auto) 18.6 L (25-47) % Mcminn % (Auto) 11.0 H (1-9) % Eos % (Auto) 0.6 (0-6) % Baso % (Auto) 1.2 (0-2) % Absolute Neuts (auto) 2.8 (1.5-7.7) 10^3/ul Absolute Lymphs (auto) 0.8 L (1.0-4.8) 10^3/ul Absolute Monos (auto) 0.5 (0-0.8) 10^3/ul Absolute Eos (auto) 0 (0-0.6) 10^3/ul Absolute Basos (auto) 0.1 (0-0.2) 10^3/ul Absolute Nucleated RBC 0 10^3/ul Nucleated RBC % 0 Sodium 135 (133-145) mmol/L Potassium 3.7 (3.5-5.0) mmol/L Chloride 104 (101-111) mmol/L Carbon Dioxide 23 (22-32) mmol/L Anion Gap 8 (2-11) mmol/L BUN 8 (6-24) mg/dL Creatinine 0.54 L (0.67-1.17) mg/dL Est GFR ( Amer) 197.0 (>60) Est GFR (Non-Af Amer) 153.2 (>60) BUN/Creatinine Ratio 14.8 (8-20) Glucose 124 H (70-100) mg/dL Calcium 9.3 (8.6-10.3) mg/dL Magnesium 1.9 (1.9-2.7) mg/dL Total Bilirubin 0.80 (0.2-1.0) mg/dL AST 114 H (13-39) U/L ALT 66 H (7-52) U/L Alkaline Phosphatase 58 (34-104) U/L Total Creatine Kinase 233 H (10-223) U/L CK-MB (CK-2) 3.2 (0.6-6.3) ng/mL Troponin I 0.01 (<0.04) ng/mL B-Natriuretic Peptide 245 H ( - 100) pg/mL Total Protein 7.8 (6.4-8.9) g/dL Albumin 4.2 (3.2-5.2) g/dL Globulin 3.6 (2-4) g/dL Albumin/Globulin Ratio 1.2 (1-3) TSH 0.60 (0.34-5.60) mcIU/mL Urine Color Urine Appearance Urine pH (5-9) Ur Specific Coyote (1.010-1.030) Urine Protein (Negative) Urine Ketones (Negative) Urine Blood (Negative) Urine Nitrate (Negative) Urine Bilirubin (Negative) Urine Urobilinogen (Negative) Ur Leukocyte Esterase (Negative) Urine WBC (Auto) (Absent) Urine RBC (Auto) (Absent) Urine Bacteria (Absent) Urine Glucose (Negative) Urine Ascorbic Acid (Negative) 01/08/17 Range/Units 13:42 WBC (3.5-10.8) 10^3/ul RBC (4.0-5.4) 10^6/ul Hgb (14.0-18.0) g/dl Hct (42-52) % MCV (80-94) fL MCH (27-31) pg MCHC (31-36) g/dl RDW (10.5-15) % Plt Count (150-450) 10^3/ul MPV (7.4-10.4) um3 Neut % (Auto) (38-83) % Lymph % (Auto) (25-47) % Mcminn % (Auto) (1-9) % Eos % (Auto) (0-6) % Baso % (Auto) (0-2) % Absolute Neuts (auto) (1.5-7.7) 10^3/ul Absolute Lymphs (auto) (1.0-4.8) 10^3/ul Absolute Monos (auto) (0-0.8) 10^3/ul Absolute Eos (auto) (0-0.6) 10^3/ul Absolute Basos (auto) (0-0.2) 10^3/ul Absolute Nucleated RBC 10^3/ul Nucleated RBC % Sodium (133-145) mmol/L Potassium (3.5-5.0) mmol/L Chloride (101-111) mmol/L Carbon Dioxide (22-32) mmol/L Anion Gap (2-11) mmol/L BUN (6-24) mg/dL Creatinine (0.67-1.17) mg/dL Est GFR ( Amer) (>60) Est GFR (Non-Af Amer) (>60) BUN/Creatinine Ratio (8-20) Glucose (70-100) mg/dL Calcium (8.6-10.3) mg/dL Magnesium (1.9-2.7) mg/dL Total Bilirubin (0.2-1.0) mg/dL AST (13-39) U/L ALT (7-52) U/L Alkaline Phosphatase (34-104) U/L Total Creatine Kinase (10-223) U/L CK-MB (CK-2) (0.6-6.3) ng/mL Troponin I (<0.04) ng/mL B-Natriuretic Peptide ( - 100) pg/mL Total Protein (6.4-8.9) g/dL Albumin (3.2-5.2) g/dL Globulin (2-4) g/dL Albumin/Globulin Ratio (1-3) TSH (0.34-5.60) mcIU/mL Urine Color Yellow Urine Appearance Clear Urine pH 8.0 (5-9) Ur Specific Coyote 1.019 (1.010-1.030) Urine Protein 1+(30 mg/dl) H (Negative) Urine Ketones Negative (Negative) Urine Blood Negative (Negative) Urine Nitrate Negative (Negative) Urine Bilirubin Negative (Negative) Urine Urobilinogen Negative (Negative) Ur Leukocyte Esterase Negative (Negative) Urine WBC (Auto) Trace(0-5/hpf) (Absent) Urine RBC (Auto) 1+(3-5/hpf) H (Absent) Urine Bacteria Absent (Absent) Urine Glucose Negative (Negative) Urine Ascorbic Acid * H (Negative) Result Diagrams: 01/08/17 12:37 01/08/17 12:37 Lab Statement: Any lab studies that have been ordered have been reviewed, and results considered in the medical decision making process. - Radiology CXR Radiology Interpretation Completed By: Radiologist - No radiographic evidence of acute cardiopulmonary disease. ED physician has reviewed this radiology report and agrees. - EKG 1218 Cardiac Rate: NL EKG Rhythm: Sinus Rhythm - 68 BPM EKG Interpretation: No ST elevation. EKG Comparison: No Significant Change - 01/07/17 Course/Dx - Course Assessment/Plan: This patient is a 66 year old M presenting to [facility] accompanied by with a chief complaint of intermittent irregular and pounding palpitations worse since this morning. He was at [facility] last night with diagnoses of alcohol intoxication and alcohol-induced A-Fib. The patient rates the pain 0/10 in severity. Symptoms aggravated by nothing. Symptoms alleviated by spontaneous resolution. He takes 20 mg Xarelto, 75 mg atenolol, and 81 mg ASA. Patient reports tremors, and diaphoresis. Patient denies CP, and SOB. An EKG reveals Sinus Rhythm. CXR reveals, per radiologist, No radiographic evidence of acute cardiopulmonary disease. ED physician has reviewed this radiology report and agrees. Test results with no significant abnormalities with all blood tests at his baseline which includes slight anemia and increased LFTs secondary to his alcoholism. Since the patient is asymptomatic and all his symptoms are resolved, the patient will be discharge with PCP follow up. The patient is agreeable with this plan. The patient is hemodynamically stable, alert and oriented x3. - Diagnoses Provider Diagnoses: Palpitations Discharge - Discharge Plan Condition: Stable Disposition: HOME Patient Education Materials: Palpitations (ED) Referrals: Harsh Harman MD [Primary Care Provider] - 3 Days Additional Instructions: RETURN TO THE EMERGENCY DEPARTMENT FOR CHANGING OR WORSENING SYMPTOMS. The documentation as recorded by the Lorena seymour Alfonso accurately reflects the service I personally performed and the decisions made by Louis mccollum Walter, MD.
== END | disposition home or self-care (01) ==
LOC: ED 12:02
DX: R00.2 Palpitations (principal); R61 Generalized hyperhidrosis; Z79.01 Long term (current) use of anticoagulants; Z79.82 Long term (current) use of aspirin; E83.119 Hemochromatosis, unspecified; E78.00 Pure hypercholesterolemia, unspecified; I10 Essential (primary) hypertension; Z88.6 Allergy status to analgesic agent; Z88.5 Allergy status to narcotic agent
CPT/HCPCS: 36415; 71020; 80053; 81003; 81015; 82550; 82553; 83735; 83880; 84443; 84484; 85025; 93005; 99282

== ENCOUNTER 2017-04-04 18:31 | Inpatient (IN) | payer BC ==
--- OUTSIDE RECORDS SUMMARY | 2017-04-04 19:29 | XMS REPORT ---
:1950 External Reference #:[id number] Author Organization [facility] Address [address] [address] Phone [phone] Care Team Providers Name Role Phone Harsh Harman M.D. Primary Care Physician Unavailable Payers Type Date Identification Numbers Payment Provider Subscriber Commercial Policy Number: [id number] [facility] Jacques Sarabia PayID: [id number] [address] [place] [address] Problems Date Description Provider Status Onset: 09/17/2015 Paroxysmal atrial fibrillation Olga Cornejo M.D. Active Onset: 09/15/2014 FH: Cardiovascular disease Olga Cornejo M.D. Active Onset: 03/21/2013 Essential hypertension Olga Cornejo M.D. Active Onset: 03/21/2013 Atrial fibrillation Olga Cornejo M.D. Active Family History Date Family Member(s) Problem(s) Comments Father Coronary Artery Disease (CAD) [place], CABG, 50 yo, PGF 30's of CA Mother Coronary Artery Disease (CAD) Thinks of CA mid 60's. First Brother No Current Problems Social History Type Date Description Comments Marital Status Lives With Alone Occupation Teacher Cigarette Use Never Smoked Cigarettes ETOH Use Has consumed alcohol in the DWI June 2013, CARS, off past EtOH October 04, 2013. ETOH Use Consumes liquor 3 times per 3 shots of scotch daily day Smoking Patient has never smoked Recreational Drug Use Denies Drug Use Daily Caffeine consumes chocolate occasionally Daily Caffeine Soda Occasional Exercise Type/Frequency Exercises sporadically General Hx Text Follow special diet: No Problems snoring, daytime fatigue: Patient states he uses a CPAP machine at night. Allergies, Adverse Reactions, Alerts Date Description Reaction Status Severity Comments 03/19/2013 Morphine nausea, vomiting active 10/15/2013 Ibuprofen irregular heart beat active per patient 09/17/2015 Amoxicillin RASH active per patient medication list 03/09/2017 Naltrexone increase fatigue active discontinued Dr. Harman Medications Medication Date Status Form Strength Qnty SIG Indications Ordering Provider Xarelto Active Tablets 20mg 90tabs 1 by mouth I48.91 Olga 014 every day Chantal MJatin Atenolol Active Tablets 50mg 135tabs 1 /2 tab Olga 000 by mouth Chantal, every day M.DAmanda in the morning Aspirin Active Chewtabs 81mg 90units 1 by mouth Unknown Childrens 000 every day Am Cpap Active Device uses at Unknown 000 night Cetirizine HCL Active Tablets 10mg 1 by mouth Unknown 000 daily as needed ( started taking Jan 2017, last taken 3 weeks ago) Clindamycin Hx Capsules 300mg 1 cap po Feroz, HCL 015 - three Jorge L, times , JAJA 016 daily for 7 days Warfarin Hx Tablets 2.5mg 1 by mouth Olga Sodium 014 - every day Reading, M.DAmanda 014 Warfarin Hx Tablets 5mg 90tabs take as Olga Sodium 013 - directed Reading, M.DAmanda 014 Gabapentin Hx Capsules 100mg 240caps 1 tab po Unknown 000 - up to 3 tablets 016 prn Amoxicillin Hx Tablets 875mg 2 tablet Unknown 000 - po daily 015 Naltrexone HCL Hx Tablets 50mg 1 tablet Harman, 000 - po daily ( Alexandru House started 018 taking 02/25/17 , stop taking after 5 days) Vital Signs Date Vital Result Comment 03/09/2017 Height 70.25 inches 5'10.25" Weight 214.50 lb without shoes Heart Rate 62 /min BP Systolic Sitting 140 mmHg Lue lg cuff BP Diastolic Sitting 90 mmHg Lue lg cuff BP Systolic Standing 138 mmHg Lue lg cuff BP Diastolic Standing 82 mmHg Lue lg cuff Respiratory Rate 13 /min BMI (Body Mass Index) 30.6 kg/m2 Ejection Fraction 60-65% date 09/24/15 ECHO 09/08/2016 Height 70.25 inches 5'10.25" Weight 199.00 lb w/ shoes Heart Rate 60 /min reg BP Systolic Sitting 144 mmHg Lue, reg cuff BP Diastolic Sitting 86 mmHg Lue, reg cuff BP Systolic Standing 150 mmHg Lue BP Diastolic Standing 84 mmHg Lue Respiratory Rate 16 /min BMI (Body Mass Index) 28.3 kg/m2 Ejection Fraction 60-65% as of 09/2015 echo 09/17/2015 Height 70.25 inches 5'10.25" Weight 195.00 lb with shoes Heart Rate 66 /min BP Systolic Sitting 128 mmHg Ra reg cuff BP Diastolic Sitting 90 mmHg Ra reg cuff BP Systolic Standing 150 mmHg Ra reg "feels clumsy" BP Diastolic Standing 94 mmHg Ra reg "feels clumsy" Respiratory Rate 16 /min BMI (Body Mass Index) 27.8 kg/m2 Ejection Fraction 62% date 10/19/10 ECHO 09/15/2014 Height 70.25 inches 5'10.25" Weight 210.00 lb with shoes Heart Rate 58 /min BP Systolic Sitting 170 mmHg Ra reg cuff BP Diastolic Sitting 90 mmHg Ra reg cuff BP Systolic Standing 170 mmHg Ra reg cuff BP Diastolic Standing 94 mmHg Ra reg cuff Respiratory Rate 16 /min BMI (Body Mass Index) 29.9 kg/m2 Ejection Fraction 62% date 10/19/10 ECHO 10/15/2013 Height 70.25 inches 5'10.25" Weight 201.00 lb with shoes Heart Rate 56 /min BP Systolic Sitting 140 mmHg Ra reg cuff BP Diastolic Sitting 94 mmHg Ra reg cuff BP Systolic Standing 140 mmHg Ra reg cuff BP Diastolic Standing 90 mmHg Ra reg cuff Respiratory Rate 16 /min BMI (Body Mass Index) 28.6 kg/m2 03/21/2013 Height 68 inches 5'8" Weight 196.00 lb without shoes Heart Rate 64 /min sit and reg BP Systolic 150 mmHg R arm reg cuff BP Diastolic 106 mmHg R arm reg cuff BP Systolic Sitting 156 mmHg R arm reg cuff BP Diastolic Sitting 102 mmHg R arm reg cuff BP Systolic Standing 152 mmHg L arm reg cuff BP Diastolic Standing 102 mmHg L arm reg cuff Respiratory Rate 15 /min BMI (Body Mass Index) 29.8 kg/m2 Results Test Date Test Result H/L Range Note Lipid Profile (Trig/Chol/HDL) 09/22/2015 Triglycerides 101 mg/dL 1, 2 Cholesterol 291 mg/dL 1, 3 HDL Cholesterol 59.3 mg/dL 1, 4 LDL Cholesterol 212 mg/dL 1, 5 Hemoglobin/Hematacrit 04/25/2013 Hemoglobin 14.1 g/dL 14.0-18.0 Hematocrit 41 % Low 42-52 Laboratory test finding 04/25/2013 Ferritin 56.8 ng/mL 24-336 Laboratory test finding 03/20/2013 Inr 3.77 High 0.85-1.06 Laboratory test finding 03/05/2013 Inr 2.67 High 0.85-1.06 Laboratory test finding 02/24/2013 Inr 1.66 High 0.85-1.06 Laboratory test finding 02/20/2013 Inr 6.06 High 0.85-1.06 6 Comp Metabolic Panel 02/20/2013 Sodium 134 mmol/L 133-145 Potassium 4.0 mmol/L 3.5-5.0 Chloride 100 mmol/L Low 101-111 Co2 Carbon Dioxide 26.0 mmol/L 22-32 Anion Gap 8.0 mmol/L 2-11 Glucose 104 mg/dL High 70-100 Blood Urea Nitrogen 17 mg/dL 6-24 Creatinine 0.60 mg/dL 0.50-1.40 BUN/Creatinine Ratio 28.3 High 8-20 Calcium 9.9 mg/dL 8.1-9.9 Total Protein 7.8 g/dL 6.2-8.1 Albumin 4.5 g/dL 3.2-5.2 Globulin 3.3 g/dL 2-4 Albumin/Globulin Ratio 1.4 1-3 Total Bilirubin 1.3 mg/dL 0.4-1.5 Alkaline Phosphatase 57 U/L 30-110 Alt 53 U/L 14-54 Ast 76 U/L High 12-42 Egfr Non- 137.4 >60 Egfr 176.7 >60 7 Laboratory test finding 02/20/2013 Ferritin 41 ng/mL 24-336 CBC No Diff 02/20/2013 White Blood Count 5.5 10^3/uL 4.8-10.8 Red Blood Count 5.23 10^6/uL 4.0-5.4 Hemoglobin 14.3 g/dL 14.0-18.0 Hematocrit 43 % 42-52 Mean Corpuscular Volume 82 fL 80-94 Mean Corpuscular Hemoglobin 27 pg 27-31 Mean Corpuscular HGB Conc 33 g/dL 31-36 Red Cell Distribution Width 18 % High 10.5-15 Platelet Count 88 10^3/uL Low 150-450 Mean Platelet Volume 9 um3 7.4-10.4 Laboratory test 01/23/2013 Inr 2.85 High 0.85-1.06 8 finding Laboratory test 01/09/2013 Inr 2.41 High 0.85-1.06 9 finding Laboratory test 01/09/2013 Ferritin 41 ng/mL 24-336 finding Laboratory test 12/31/2012 Inr 1.97 High 0.85-1.06 10 finding Laboratory test 12/26/2012 Inr 1.89 High 0.85-1.06 11 finding Laboratory test 12/23/2012 Inr 5.19 High 0.85-1.06 12 finding Laboratory test 12/05/2012 Inr 1.95 High 0.87-0.97 finding Laboratory test 11/26/2012 Inr 1.37 High 0.87-0.97 finding Laboratory test 11/12/2012 Inr 1.92 High 0.87-0.97 finding Laboratory test 11/04/2012 Inr 2.43 High 0.87-0.97 finding Laboratory test 11/01/2012 Inr 2.72 High 0.87-0.97 13 finding Laboratory test 10/31/2012 Inr 1.81 High 0.87-0.97 14 finding Laboratory test 10/28/2012 Inr 1.56 High 0.87-0.97 finding Laboratory test 09/19/2012 Therapeutic Phlebotomy (SEE NOTE) 15 finding CBC Auto Diff 09/19/2012 White Blood Count 4.2 10^3/uL Low 4.8-10.8 Red Blood Count 5.36 10^6/uL 4.0-5.4 Hemoglobin 17.1 g/dL 14.0-18.0 Hematocrit 51 % 42-52 Mean Corpuscular Volume 95 fL High 80-94 Mean Corpuscular Hemoglobin 32 pg High 27-31 Mean Corpuscular HGB Conc 34 g/dL 31-36 Red Cell Distribution Width 14 % 10.5-15 Platelet Count 115 10^3/uL Low 150-450 Mean Platelet Volume 9 um3 7.4-10.4 Abs Neutrophils 3.0 10^3/uL 1.5-7.7 Abs Lymphocytes 0.8 10^3/uL Low 1.0-4.8 Abs Monocytes 0.4 10^3/uL 0-0.8 Abs Eosinophils 0 10^3/uL 0-0.6 Abs Basophils 0 10^3/uL 0-0.2 Abs Nucleated RBC 0 10^3/uL Granulocyte % 70.9 % 38-83 Lymphocyte % 18.0 % Low 25-47 Monocyte % 9.5 % High 1-9 Eosinophil % 0.7 % 0-6 Basophil % 0.9 % 0-2 Nucleated Red Blood Cells % 0.1 Liver Function Panel 09/19/2012 Total Protein 8.0 g/dL 6.2-8.1 Albumin 4.5 g/dL 3.2-5.2 Globulin 3.5 g/dL 2-4 Albumin/Globulin Ratio 1.3 1-3 Total Bilirubin 1.9 mg/dL High 0.4-1.5 Direct Bilirubin 0.3 mg/dL 0.1-0.5 Indirect Bilirubin 1.6 mg/dL High 0.3-1.0 Alkaline Phosphatase 59 U/L 30-110 Alt 129 U/L High 14-54 Ast 213 U/L High 12-42 Iron & Iron Binding Capacity 09/19/2012 Iron 363 g/dL High 45-182 Unsaturated Iron Binding 126 g/dL Total Iron Binding Capacity 489 g/dL High 250-450 % Iron Saturation 74 % High 15-55 Laboratory test finding 09/19/2012 Ferritin 390 ng/mL High 24-336 16 1 FASTING 2 Desirable <150 Borderline high 150-199 High 200-499 Very High >500 3 Desirable <200 Borderline high 200-239 High >239 4 Low <40 Desirable: 40-60 High: >60 5 Desirable: <100 mg/dL Near Optimal: 100-129 mg/dL Borderline High: 130-159 mg/dL High: 160-189 mg/dL Very High: >189 mg/dL 6 Verbal to answering service by [id number] at 1853 on 02/20/13. 7 Because ethnic data is not always readily available, this report includes an eGFR for both -Americans and non- Americans. The National Kidney Disease Education Program (NKDEP) does not endorse the use of the MDRD equation for patients that are not between the ages of 18 and 70, are , have extremes of body size, muscle mass, or nutritional status, or are non- or non-. According to the National Kidney Foundation, irrespective of diagnosis, the stage of the disease is based on the level of kidney function: Stage Description GFR(mL/min/1.73 m(2)) 1 Kidney damage with normal or decreased GFR 90 2 Kidney damage with mild decrease in GFR 60-89 3 Moderate decrease in GFR 30-59 4 Severe decrease in GFR 15-29 5 Kidney failure <15 (or dialysis) 8 Please note the change in the INR reference range effective 12. 9 Please note the change in the INR reference range effective 12. 10 Please note the change in the INR reference range effective 12. 11 Please note the change in the INR reference range effective 12. 12 Please note the change in the INR reference range effective 12. 13 See triage. [address] Cornejo. Coumadin increased to 10mg for two days, then 7.5mg daily, repeat INR 17. PORFIRIO/CV on for tomorrow. [facility] will repeat INR tomorrow. KN 15 Approximately 450 ml of blood removed. 16 THER PHLEB IF HGB GREATER THAN/EQUAL TO 12. Procedures Date CPT Code Description Status 03/09/2017 27928 EKG Tracing & Interpretation Completed 09/08/2016 34262 EKG Tracing & Interpretation Completed 08/25/2016 55308 Cardioversion Completed 09/24/2015 37829 ECHO Transthoracic, Real-Time 2D With Doppler And Color Completed Flow 09/17/2015 13952 EKG Tracing & Interpretation Completed 09/15/2014 66871 EKG Tracing & Interpretation Completed 04/14/2013 46915 Treadmill Interp/Report Only Completed 04/14/2013 08034 Stress Test Supervsn W/Out I/R Completed 03/05/2013 37367 Polysomnography Sleep Staging 4+ Parameters W/Cpap Completed 01/30/2013 67647 Polysomnography Sleep Staging 4+ Parameters Completed 11/05/2012 96595 EKG Tracing & Interpretation Completed 11/01/2012 53189 EKG, Interpretation Only Completed 11/01/2012 95182 Cardioversion Completed 10/28/2012 74676 ECHO Stress Test Incl Perf Contiuous ekg Monitoring Completed W/Phys Superv 10/17/2012 16824 EKG Tracing & Interpretation Completed 09/30/2012 25563 Holter Monitor Review (24 hr)dr review & interp Completed only 03/10/2010 88657 Color Flow Doppler/Interp & Reprt Completed 03/10/2010 28918 Pulse Wave/Continuous-Interp.RPT Completed 03/10/2010 64596 ECHO Transthorasic Realtime 2D W Doppler & Color Completed Flow Hosp Encounters Type Date Location Provider CPT E/M Dx Office Visit 03/09/2017 10:40a [facility] Jose Cornejo M.D. 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 82291 I48.0 [facility] Z82.49 G47.33 I10 E83.110 Office Visit 09/15/2014 9:45a [facility] Jose Cornejo M.D. 56697 427.31 Passenger Representative V17.49 Office Visit 10/15/2013 9:15a [facility] Jose Cornejo M.D. 82536 427.31 Passenger Representative 327.23 401.1 272.2 Office Visit 07/24/2013 1:12p [facility] Nicolas Patel M.D. 15841 327.23 Office Visit 04/14/2013 4:20p [facility] [place] [address] 413.9 [facility] Hospital[facility] M.D. 275.01 401.9 300.00 Office Visit 03/21/2013 3:30p [facility] Olga Cornejo M.D. 89449 427.31 [facility] 401.9 Office Visit 10/17/2012 12:15p [facility] Olga Cornejo M.D. 02867 427.31 Passenger Representative 786.09 Plan of Care 03/09/2017 - Olga Cornejo M.D.I48.0 Paroxysmal atrial fibrillationFollow up:JILL Cornejo/PT ESCORT 6 monthsRecommendations:Continue to decrease and abstain from alcohol. You are more likely to have palpitations and atrial fibrillation when drinking alcohol. Continue Atenolol 75mg daily. Please cotnact our office if you have difficulty obtaining this medication and we will adjust medications.E83.110 Hereditary ubopittezmampqsH79.33 Obstructive sleep apnea ( adult) (pediatric)E78.5 Hyperlipidemia, unspecifiedRecommendations:Discuss with Dr. Harman initiation of statin. You LDL is elevated at 189 and cholesterol is 250.
--- NOTE | 2017-04-04 20:09 | RAD ---
Indication: Chest pain, fall and shortness of breath. Single frontal view of the chest performed at 1926 hours was reviewed. Comparison is made with previous exam dated April 03, 2017. Cardiomegaly is noted. There is right pleural effusion and likely right basilar infiltrate noted. Left lung field is clear. Moderate-sized right pneumothorax is noted. Subcutaneous emphysema is noted in the right lateral chest wall. Multiple rib fractures of the right seventh and possibly eighth ribs are noted. IMPRESSION: MODERATE SIZE RIGHT PNEUMOTHORAX WITH RIGHT PLEURAL EFFUSION. RIB FRACTURES ON THE RIGHT SEVENTH AND POSSIBLY EIGHTH RIBS.
[2017-04-04 21:00] LABS: ABS Basophils 0.1 10^3/ul (0-0.2); ABS Eosinophils 0.1 10^3/ul (0-0.6); ABS Lymphocytes 1.6 10^3/ul (1.0-4.8); ABS Monocytes 0.9 10^3/ul (0-0.8); ABS Neutrophils 5.8 10^3/ul (1.5-7.7); ABS Nucleated RBC 0 10^3/ul; Eosinophil % 1.1 % (0-6); Hematocrit 38 % (42-52); Hemoglobin 12.6 g/dl (14.0-18.0); Lymphocyte % 18.8 % (25-47); Mean Corpuscular HGB Conc 33 g/dl (31-36); Mean Corpuscular Hemoglobin 29 pg (27-31); Mean Corpuscular Volume 87 fL (80-94); Mean Platelet Volume 8 um3 (7.4-10.4); Nucleated Red Blood Cells % 0; Platelet Count 141 10^3/ul (150-450); Red Blood Count 4.37 10^6/ul (4.0-5.4); Red Cell Distribution Width 16 % (10.5-15); White Blood Count 8.4 10^3/ul (3.5-10.8)
--- NOTE | 2017-04-04 21:08 | RAD ---
Indication: Fall, rib fracture. CT of the chest was performed without IV contrast. Coronal and sagittal reconstructed images present. Inferior thyroid lobes are unremarkable. Small mediastinal lymph nodes are noted. The heart demonstrates no pericardial effusion. There is a moderate to large right pneumothorax present. There is moderate degree of pleural effusion. There is likely high density material in the dependent portion of the pleural fluid likely representing hemorrhage. Extensive subcutaneous emphysema is noted along the right chest wall extending to the latissimus muscle. Fractures of the right seventh and eighth ribs are noted. Left lung field is clear. The visualized abdominal organs are grossly unremarkable. IMPRESSION: Right-sided hemopneumothorax of moderate to large size. Extensive right-sided subcutaneous emphysema with fractures of the right seventh and eighth rib laterally. Left lung field is clear.
[2017-04-04 21:21] LABS: EGFR Non-African American 153.2 (>60)
[2017-04-04] MEDS ORDERED: Midazolam* 1 MG/ML 10 ML VIAL (10 MG) ONE (21:52)
[2017-04-04] MEDS ORDERED: fentaNYL* 50 MCG/ML 2 ML VIAL (100 MCG VIAL) ONE (21:52)
[2017-04-04] MEDS ORDERED: Lidocaine 2% EPI 1:200000 MPF* 20 ML VIAL ONE (21:59)
[2017-04-04] MEDS ORDERED: Ondansetron INJ* 2 MG/ML VIAL IV PRN (22:39)
[2017-04-04] MEDS ORDERED: HYDROmorphone INJ* 1 MG/ML CARPUJECT SYRINGE IV PRN (22:39)
[2017-04-04] MEDS ORDERED: oxyCODONE/Acetamin 5/325 MG* TAB PO PRN (22:39)
--- NOTE | 2017-04-04 23:33 | HP ---
CC: Harsh Harman MD; [facility] * HISTORY AND PHYSICAL: DATE OF ADMISSION: 04/04/17 HISTORY OF PRESENT ILLNESS: I was contacted by the emergency room to evaluate Mr. Sarabia, a 66-year-old gentleman, who presented to the emergency room yesterday after a fall in the ice at approximately 10 a.m. yesterday morning. The patient suffered multiple rib fractures, was discharged home on pain medications. The patient had worsening chest pain today and presented to the emergency room via ambulance with shortness of breath and persistent right chest pain. An x- ray performed in the ER was consistent with a pneumothorax. I was contacted and discussed the case with the ER physician and recommended the patient undergo a chest CT. This was performed and these images as well as the report were reviewed and it was consistent with a large hemothorax and pneumothorax with multiple rib fractures. When I saw the patient, he was resting in bed. He was in no significant distress, somewhat anxious on 2 L nasal cannula saturating at 92% with stable vitals. He stated that he had some chest pain that did go across the anterior chest, but by and large had the lateral rib pain on the right where the fractures occurred. He described falling on to his side yesterday on ice. He did not lose consciousness. He only fell on that one portion, did not hit his head. He complained of shoulder pain and chest pain. The patient denies any hemoptysis. He does have appetite. Denies any fevers or chills. PAST MEDICAL HISTORY: 1. Paroxysmal atrial fibrillation. He is on Xarelto. His last dose was yesterday evening. 2. Hereditary hemochromatosis. 3. Atrial fibrillation. 4. Hypertension. 5. Hypercholesterolemia. 6. Obstructive sleep apnea, utilizing CPAP machine. PAST SURGICAL HISTORY: Bilateral eye surgery. No abdominal surgeries. No chest surgery. MEDICATIONS: Include: 1. Atenolol. 2. Xarelto. 3. Aspirin 81 mg. ALLERGIES: He is allergic to MS MORPHINE and IBUPROFEN. FAMILY HISTORY: Noncontributory. SOCIAL HISTORY: He is a nonsmoker. He lives alone. His cousin looks after him and he looks after his cousin. He denies any recent hospitalizations other than for eye surgery. REVIEW OF SYSTEMS: No fevers, no chills, no headaches. Positive shortness of breath. Cardiac disease as described above. No cerebrovascular disease. Good appetite. No abdominal pain. No change in bowel habits. No dysuria and no hematuria. Fair exercise tolerance. PHYSICAL EXAMINATION GENERAL: He is alert and oriented x3, in no apparent distress. VITAL SIGNS: Temperature 100.9, blood pressure 153/87 with a pulse rate of 70s. He is 5 feet 9 inches, 218 pounds, and has a body mass index of 32. HEAD, EARS, EYES, AND THROAT: Normocephalic and atraumatic. Sclerae anicteric. Mucous membranes are moist. NECK: No lymphadenopathy. No tracheal shift. LUNGS: Decreased breath sounds on the right with splinting, crepitans along the right rib cage. No ecchymoses. Left chest intact. ABDOMEN: Soft, obese, and nontender. EXTREMITIES: Without clubbing or pitting edema. RECTAL: Not performed. LABORATORY DATA: Labs reviewed and show a hematocrit of 38 yesterday, baseline is 40 to 41. He did not have a blood draw yesterday. Chemistry panel reviewed and shows a sodium of 129, normal creatinine. IMAGING: CT scan reviewed and shows a moderate degree of pleural effusion with high-density material consistent with hemorrhage, subcutaneous emphysema, fractures of the right 7th and 8th ribs along with the pneumothorax that is moderate to large in size. IMPRESSION: Status post fall with multiple rib fractures, now with pneumothorax and likely hemothorax. No other findings at this point. I believe the patient needs to be treated for this purpose and a large bore chest tube is warranted. Given the fact that he was in trauma and is on Xarelto, I did reach out to the trauma surgeons at [facility] and spoke to the team there. They felt that they would not do anything different other than admit and place a large bore chest tube and not even place in ICU given the facts that I told them over the telephone. I felt this is reasonable and I described all of this to the patient. His questions were answered and he agreed to undergo a right tube thoracostomy. I spoke of the possible complications which included, but not limited to bleeding, infection, need for additional procedures, need for thoracotomy, or video-assisted thoracostomy, prolonged hospitalization, and even transfer to another institution. The patient signed consent. I asked the ER team to offer conscious sedation to Mr. Sarabia, this was accepted. Please see their report for separate details. Time-out was performed after the patient was draped. The right chest incision site was injected with local. This incision was made, this was deepened down through the tissues and entry into the right chest was made with blunt dissection with a large Francisca clamp. Large gush of air was noted. Additional dissection in the chest with finger revealed blood. Once we had this, we placed a 36-Mongolian chest tube in and placed it apically and sutured it to the skin with 0 silk suture. A dressing was applied. The tubing was then placed to the Pleur-evac and approximately a liter of dark blood was removed. This did not seem to continue to actively bleed. We kept it to suction. There is a small air leak. PLAN: Going forward in his admission, hold Xarelto. The patient may eat. No antibiotics at this time. He will be in a monitored bed on the surgical unit. We will have a low threshold to contact hospitalist service, but at this point we will maintain his trauma admission. I am going to hold off on subcutaneous heparin until the morning, will give the patient GI prophylaxis and IV fluids and pain control. [id number]/[facility] #: [id number] FACUNDO
[2017-04-05] MEDS: NS 0.9% 1000 ML* 1,000 ML IV SCH ×2 (00:25→20:47)
[2017-04-05] MEDS: HYDROcodone/ACETAMIN 5-325 MG* 1 TAB PO PRN ×3 (01:35→20:45)
[2017-04-05] MEDS: HYDROmorphone INJ* 1 MG/ML CARPUJECT SYRINGE IV PRN (04:05)
[2017-04-05 05:32] LABS: ABS Basophils 0.1 10^3/ul (0-0.2); ABS Eosinophils 0.1 10^3/ul (0-0.6); ABS Lymphocytes 1.6 10^3/ul (1.0-4.8); ABS Monocytes 0.9 10^3/ul (0-0.8); ABS Neutrophils 5.7 10^3/ul (1.5-7.7); ABS Nucleated RBC 0 10^3/ul; Eosinophil % 1.6 % (0-6); Hematocrit 35 % (42-52); Hemoglobin 11.8 g/dl (14.0-18.0); Lymphocyte % 19.5 % (25-47); Mean Corpuscular HGB Conc 33 g/dl (31-36); Mean Corpuscular Hemoglobin 29 pg (27-31); Mean Corpuscular Volume 87 fL (80-94); Mean Platelet Volume 9 um3 (7.4-10.4); Nucleated Red Blood Cells % 0; Platelet Count 128 10^3/ul (150-450); Red Blood Count 4.07 10^6/ul (4.0-5.4); Red Cell Distribution Width 16 % (10.5-15); White Blood Count 8.4 10^3/ul (3.5-10.8)
[2017-04-05 05:49] LABS: EGFR Non-African American 184.3 (>60)
--- NOTE | 2017-04-05 07:26 | RAD ---
INDICATION: Chest tube placement, pneumothorax. COMPARISON: Comparison is made with a prior chest x-ray study of the same date from 1926 hours. TECHNIQUE: A portable view of the chest was obtained. FINDINGS: The heart is moderately enlarged and unchanged from the prior exam. There is been placement of a chest tube present on the right side. The catheter tip projects over the medial right mid thorax. There is been reexpansion of the right lung. The previously noted pneumothorax is not seen. The lungs are underinflated. There are small bibasilar infiltrates most consistent with atelectasis. No pleural effusion is seen. There are mid to lower lateral rib fractures. IMPRESSION: STATUS POST RIGHT CHEST TUBE PLACEMENT AND REEXPANSION OF THE RIGHT LUNG.
[2017-04-05] MEDS ORDERED: Magnesium Hydroxide LIQ* 30 ML UDC PO PRN (09:42)
--- NOTE | 2017-04-05 09:48 | RAD ---
HISTORY: Hemothorax COMPARISONS: April 04, 2017 VIEWS: 1: frontal portable view of the chest at 9:05 AM FINDINGS: LINES AND TUBES: A left-sided chest tube is noted. CARDIOMEDIASTINAL SILHOUETTE: The cardiomediastinal silhouette is normal for portable technique. PLEURA: The costophrenic angles are sharp. No pleural abnormalities are noted. LUNG PARENCHYMA: The lungs are clear. ABDOMEN: The upper abdomen is clear. There is no subphrenic gas. BONES AND SOFT TISSUES: There is small amount of subcutaneous emphysema. IMPRESSION: RIGHT-SIDED CHEST TUBE. NO APPRECIABLE RESIDUAL PNEUMOTHORAX. SMALL AMOUNT OF SUBCUTANEOUS EMPHYSEMA.
--- NOTE | 2017-04-05 09:55 | PN ---
Progress Note - Progress Note Date of Service: 04/05/17 Note: S: current pain level 2/10, but increases to 8/10 when moving or coughing. Denies SOB. Currently off O2. No N/V. Has not moved bowels since prior to fall ( 2 days). Current Medications Hydrocodone Bitart/Acetaminophen (Clifton 5-325 Tab*) 1 tab PO Q6H PRN PRN Reason: PAIN Last Admin: 04/05/17 07:31 Dose: 1 tab Atenolol (Tenormin Tab*) 75 mg PO DAILY MISTY Docusate Sodium (Colace Cap*) 200 mg PO BID MISTY Hydromorphone HCl (Dilaudid Injic*) 1 mg IV Q1H PRN PRN Reason: Pain - severe Last Admin: 04/05/17 04:05 Dose: 1 mg Sodium Chloride (Ns 0.9% 1000 Ml*) 1,000 mls @ 50 mls/hr IV .PER RATE MISTY Last Admin: 04/05/17 00:25 Dose: 50 mls/hr Magnesium Hydroxide (Milk Of Magnesia Liq*) 30 ml PO BID PRN PRN Reason: CONSTIPATION Ondansetron HCl (Zofran Inj*) 4 mg IV Q4H PRN PRN Reason: NAUSEA/VOMITING Oxycodone/Acetaminophen (Percocet 5/325 Tab*) 1 tab PO Q4H PRN PRN Reason: PAIN O: Vital Signs - 8 hr 04/05/17 04/05/17 04/05/17 03:24 04:05 04:10 Temperature 98.5 F Pulse Rate 64 Respiratory 16 18 18 Rate Blood Pressure 134/76 (mmHg) O2 Sat by Pulse 93 Oximetry 04/05/17 04/05/17 04/05/17 04:19 05:31 07:11 Temperature 98.6 F 98.2 F Pulse Rate 69 62 Respiratory 19 16 17 Rate Blood Pressure 153/92 134/79 (mmHg) O2 Sat by Pulse 92 91 Oximetry 04/05/17 04/05/17 04/05/17 07:15 07:31 07:46 Temperature Pulse Rate Respiratory 18 18 Rate Blood Pressure (mmHg) O2 Sat by Pulse 96 Oximetry Intake and Output Last 24 Hours 04/03/17 04/04/17 04/05/17 04/06/17 06:59 06:59 06:59 06:59 Intake Total 0 Output Total 1275 200 Balance -1275 -200 Weight 218 lb Intake: Oral 0 Output: Chest Tube #1 1075 Urine 200 200 Gen: NAD; comfortable sitting up in chair Heart: reg Lungs: clear upper sidhu; decrease BS at R base; min palp sq emphysema around CT site; CT w/ total of ~ 1200 ml light sang drainage; no current air leak cXray: Exam Date: 04/05/17 0848 ADM Status: ADM IN Order Information: CHEST AP PORTABLE COMPARISONS: April 04, 2017 VIEWS: 1: frontal portable view of the chest at 9:05 AM FINDINGS: LINES AND TUBES: A left-sided chest tube is noted. CARDIOMEDIASTINAL SILHOUETTE: The cardiomediastinal silhouette is normal for portable technique. PLEURA: The costophrenic angles are sharp. No pleural abnormalities are noted. LUNG PARENCHYMA: The lungs are clear. ABDOMEN: The upper abdomen is clear. There is no subphrenic gas. BONES AND SOFT TISSUES: There is small amount of subcutaneous emphysema. IMPRESSION: RIGHT-SIDED CHEST TUBE. NO APPRECIABLE RESIDUAL PNEUMOTHORAX. SMALL AMOUNT OF SUBCUTANEOUS EMPHYSEMA. A: fall on ice w/ mult R rib fxs w/ hemoptx, now s/p chest tube placement w/ improvement P: cont chest tube; analgesics; bowel regimen; IS; flutter valve; ambulation
[2017-04-05] MEDS ORDERED: Atenolol TAB* 50 MG PO SCH (10:00)
[2017-04-05] MEDS ORDERED: Acetaminophen TAB* 325 MG PO PRN (10:06)
[2017-04-05] MEDS: Docusate CAP* 100 MG PO SCH ×2 (10:27→20:47)
[2017-04-05] MEDS: HYDROcodone/ACETAMIN 5-325 MG* 1 TAB PO SCH ×4 (10:27→21:59)
[2017-04-05] MEDS: Atenolol TAB* 50 MG PO SCH (10:27)
--- NOTE | 2017-04-05 15:09 | ED ---
Bharath Hitchcock Gabriel, scribed for Santos Timmons MD on 04/04/17 at 1901 . Respiratory - HPI Summary HPI Summary: This patient is a 66 year old M BIBA to [facility] with a chief complaint of trouble breathing since earlier today. The patient rates the burning pain 10/10 in severity. Symptoms aggravated by kavin his abdominals. Symptoms alleviated by rest. Patient reports nasal congestion, SOB, and right rib pain. He fell yesterday at 1000, landing on his ribs, breaking 4. He is able to ambulate. - History of Current Complaint Stated Complaint: RIB PAIN Time Seen by Provider: 04/04/17 18:51 Hx Obtained From: Patient Onset/Duration: Lasting Hours, Still Present Initial Severity: Severe Current Severity: Severe Pain Intensity: 10 Aggravating Factor(s): Deep Breaths, Recumbent Position, Other - movement Associated Signs and Symptoms: SOB - Allergy/Home Medications Allergies/Adverse Reactions: Allergies Allergy/AdvReac Type Severity Reaction Status Date / Time ibuprofen AdvReac Mild Palpitation Verified 04/05/17 09:48 s morphine AdvReac Mild Nausea And Verified 04/05/17 09:48 Vomiting Home Medications: Home Medications HYDROcodone/ACETAMIN 5-325 MG* [Jelm 5-325 TAB*] 1 tab PO Q6H PRN 04/04/17 [ History Confirmed 04/04/17] PMH/Surg Hx/FS Hx/Imm Hx Endocrine/Hematology History: Reports: Hx Blood Disorders - hemachromatosis Denies: Hx Diabetes, Hx Sickle Cell Disease Cardiovascular History: Reports: Hx Hypercholesterolemia, Hx Hypertension - ON MEDS, Other Cardiovascular Problems/Disorders - A FIB, CARDIOVERSION X 2 Respiratory History: Reports: Other Respiratory Problems/Disorders - PAIN RIGHT EAR Musculoskeletal History: Reports: Hx Back Problems - "Lower back pain" due to one hour commute to work Sensory History: Reports: Hx Cataracts - RIGHT EYE, Hx Contacts or Glasses - READING GLASSES, Hx Vision Problem - vision chgs when iron level go up Denies: Hx Hearing Aid Opthamlomology History: Reports: Hx Cataracts - RIGHT EYE, Hx Contacts or Glasses - READING GLASSES, Hx Vision Problem - vision chgs when iron level go up Neurological History: Reports: Other Neuro Impairments/Disorders - Surgical History Surgery Procedure, Year, and Place: TONSILECTOMY, A CHILD,[facility] [place]. HERNIA, A BABY, [facility] [place]. LEFT EYE RETINAL TEAR, [place] X2. LEFT CATARACT, 09/27/06, [facility] [place]. APPENDECTOMY, AGE 14, [facility] [place]. LEFT WRIST, [facility], AGE 14 OR 15. WISDOM TEETH, AGE 21. Hx Anesthesia Reactions: Yes - "WIth my cornea operation the doctor was merrick HOT FLASHES, SWEATING, DIZZI - Immunization History Date of Tetanus Vaccine: unsure Date of Influenza Vaccine: none - Family History Known Family History: Positive: Cardiac Disease, Other - CA. - Social History Alcohol Use: Daily Alcohol Amount: about 6-- - 7 drinks a day Hx Substance Use: No Substance Use Type: Reports: None Hx Tobacco Use: No Smoking Status (MU): Never Smoked Tobacco Review of Systems Positive: Other - nasal congestion Positive: Shortness Of Breath, Other - trouble breathing Positive: Other - broken ribs/ rib pain All Other Systems Reviewed And Are Negative: Yes Physical Exam - Summary Physical Exam Summary: Appearance: The patient is well-nourished in no acute distress and in no acute pain. Skin: The skin is warm and dry and skin color reflects adequate perfusion. HEENT: The head is normocephalic and atraumatic. The pupils are equal and reactive. The conjunctivae are clear and without drainage. Nares are patent and without drainage. Mouth reveals moist mucous membranes and the throat is without erythema and exudate. The external ears are intact. The ear canals are patent and without drainage. The tympanic membranes are intact. Neck: the neck is supple with full range of motion and non-tender. There are no carotid bruits. There is no neck vein distension. Respiratory: No breath sound appreciated on the right but crackles heard posteriorly. Resonant to percussion no tracheal deviation Cardiovascular: Heart is regular rate and rhythm. There is no murmur or rub auscultated. There is no peripheral edema and pulses are symmetrical and equal. Abdomen: The abdomen is soft and non-tender. There are normal bowel sounds heard in all four quadrants and there is no organomegaly palpated. Musculoskeletal: There is no back tenderness noted. Extremities are non-tender with full range of motion. There is good capillary refill. There is no peripheral edema or calf tenderness elicited. Neurological: Patient is alert and oriented to person, place and time. The patient has symmetrical motor strength in all four extremities. Cranial nerves are grossly intact. Deep tendon reflexes are symmetrical and equal in all four extremities. Psychiatric: The patient has an appropriate affect and does not exhibit any anxiety or depression. Triage Information Reviewed: Yes Vital Signs On Initial Exam: Initial Vitals Temp Pulse Resp BP Pulse Ox 100.9 F 77 20 142/77 90 04/04/17 18:35 04/04/17 18:35 04/04/17 18:35 04/04/17 18:35 04/04/17 18:35 Vital Signs Reviewed: Yes Procedures - Procedure Summary Procedure Summary: 30 minutes of conscious sedation was performed. The patient was a Mallampati of II. He was given 6 mgs of Versed and 50 micrograms of Fentanyl after assembly of all equipment and rescue meds as well as placing him on the monitor , O2 and pulse ox. He achieved a moderate sedation and tolerated the procedure well. Diagnostics - Vital Signs Vital Signs Temp Pulse Resp BP Pulse Ox 04/04/17 22:35 66 16 105/66 90 04/04/17 22:30 67 19 120/66 90 04/04/17 22:25 69 23 125/72 89 04/04/17 22:20 71 22 142/73 88 04/04/17 22:15 72 20 116/55 94 04/04/17 22:10 72 22 131/68 92 04/04/17 22:06 71 22 153/87 93 04/04/17 22:00 22 04/04/17 21:30 74 21 146/88 93 04/04/17 21:19 71 18 146/86 94 04/04/17 21:00 71 19 94 04/04/17 20:00 68 19 127/71 92 04/04/17 19:30 74 19 123/75 92 04/04/17 19:00 75 21 131/62 90 04/04/17 18:55 75 20 142/77 90 04/04/17 18:46 74 91 04/04/17 18:35 100.9 F 77 20 142/77 90 - Laboratory Lab Results: Lab Results 04/04/17 04/04/17 Range/Units 20:50 20:50 WBC 8.4 (3.5-10.8) 10^3/ul RBC 4.37 (4.0-5.4) 10^6/ul Hgb 12.6 L (14.0-18.0) g/dl Hct 38 L (42-52) % MCV 87 (80-94) fL MCH 29 (27-31) pg MCHC 33 (31-36) g/dl RDW 16 H (10.5-15) % Plt Count 141 L (150-450) 10^3/ul MPV 8 (7.4-10.4) um3 Neut % (Auto) 68.3 (38-83) % Lymph % (Auto) 18.8 L (25-47) % Ross % (Auto) 10.4 H (1-9) % Eos % (Auto) 1.1 (0-6) % Baso % (Auto) 1.4 (0-2) % Absolute Neuts (auto) 5.8 (1.5-7.7) 10^3/ul Absolute Lymphs (auto) 1.6 (1.0-4.8) 10^3/ul Absolute Monos (auto) 0.9 H (0-0.8) 10^3/ul Absolute Eos (auto) 0.1 (0-0.6) 10^3/ul Absolute Basos (auto) 0.1 (0-0.2) 10^3/ul Absolute Nucleated RBC 0 10^3/ul Nucleated RBC % 0 Sodium 129 L (133-145) mmol/L Potassium 4.4 (3.5-5.0) mmol/L Chloride 97 L (101-111) mmol/L Carbon Dioxide 25 (22-32) mmol/L Anion Gap 7 (2-11) mmol/L BUN 21 (6-24) mg/dL Creatinine 0.54 L (0.67-1.17) mg/dL Est GFR ( Amer) 197.0 (>60) Est GFR (Non-Af Amer) 153.2 (>60) BUN/Creatinine Ratio 38.9 H (8-20) Glucose 118 H (70-100) mg/dL Calcium 9.6 (8.6-10.3) mg/dL Total Bilirubin 0.80 (0.2-1.0) mg/dL AST 70 H (13-39) U/L ALT 62 H (7-52) U/L Alkaline Phosphatase 48 (34-104) U/L Total Protein 7.5 (6.4-8.9) g/dL Albumin 4.1 (3.2-5.2) g/dL Globulin 3.4 (2-4) g/dL Albumin/Globulin Ratio 1.2 (1-3) Result Diagrams: 04/05/17 04:31 04/05/17 04:31 Lab Statement: Any lab studies that have been ordered have been reviewed, and results considered in the medical decision making process. - Radiology CXR Radiology Interpretation Completed By: Radiologist - MODERATE SIZE RIGHT PNEUMOTHORAX WITH RIGHT PLEURAL EFFUSION. RIB FRACTURES ON THE RIGHT SEVENTH AND POSSIBLY EIGHTH RIBS. ED physician has reviewed this radiology report. - CT CT Chest CT Interpretation Completed By: Radiologist - Right-sided hemopneumothorax of moderate to large size. Extensive right-sided subcutaneous emphysema with fractures of the right seventh and eighth rib laterally. Left lung field is clear. ED physician has reviewed this radiology report. Disposition - Course Course Of Treatment: Mr. Sarabia presented with SOB with exertion after falling yesterday. He slipped on the ice and had outpatient rib plain film which revealed multiple rib fractures and a small pleural effusion with out hemothorax. Films today showed a near complete pneumothorax with effusion and a CT was obtained which showed hemo/pneumthorax without shift. Dr. Garnica camt to the ED and placed a right chest tube under conscious sedaton with the immediate return of a liter of blood. - Diagnoses Provider Diagnoses: Hemopneumothorax, right, Multiple rib fractures - Physician Notifications Discussed Care Of Patient With: Bharat Garnica Time Discussed With Above Provider: 20:22 Instructed by Provider To: Other - We discussed patient care with Dr. Garnica and they recommended getting a CT scan. Discharge - Discharge Plan Condition: Stable Disposition: ADMITTED TO [facility] documentation as recorded by the Bharath seymour Gabriel accurately reflects the service I personally performed and the decisions made by , Santos Timmons MD.
[2017-04-06] MEDS: HYDROcodone/ACETAMIN 5-325 MG* 1 TAB PO SCH ×6 (02:13→21:50)
[2017-04-06 06:18] LABS: ABS Basophils 0 10^3/ul (0-0.2); ABS Eosinophils 0.3 10^3/ul (0-0.6); ABS Lymphocytes 1.8 10^3/ul (1.0-4.8); ABS Monocytes 0.8 10^3/ul (0-0.8); ABS Neutrophils 3.6 10^3/ul (1.5-7.7); ABS Nucleated RBC 0 10^3/ul; Hematocrit 37 % (42-52); Hemoglobin 12.1 g/dl (14.0-18.0); Lymphocyte % 28.4 % (25-47); Mean Corpuscular HGB Conc 33 g/dl (31-36); Mean Corpuscular Hemoglobin 29 pg (27-31); Mean Corpuscular Volume 88 fL (80-94); Mean Platelet Volume 9 um3 (7.4-10.4); Nucleated Red Blood Cells % 0; Platelet Count 126 10^3/ul (150-450); Red Blood Count 4.21 10^6/ul (4.0-5.4); Red Cell Distribution Width 16 % (10.5-15); White Blood Count 6.5 10^3/ul (3.5-10.8)
[2017-04-06] MEDS: Atenolol TAB* 50 MG PO SCH (07:37)
[2017-04-06] MEDS: Docusate CAP* 100 MG PO SCH ×2 (07:37→20:17)
--- NOTE | 2017-04-06 09:54 | PN ---
<Dileep Flaherty - Last Filed: 04/06/17 09:51> Progress Note - Progress Note Date of Service: 04/06/17 - + Note: S: Seen with and examined by Dr. Garnica. No new c/o. Using Hydrocodone for pain w / good results. Pawan po. No BM. O: Vital Signs - 8 hr 04/06/17 04/06/17 04/06/17 02:13 03:22 04:13 Temperature 98.1 F Pulse Rate 64 Respiratory 18 16 16 Rate Blood Pressure 143/77 (mmHg) O2 Sat by Pulse 93 Oximetry 04/06/17 04/06/17 04/06/17 06:03 07:13 07:48 Temperature 97.9 F Pulse Rate 60 Respiratory 16 16 16 Rate Blood Pressure 121/67 (mmHg) O2 Sat by Pulse 94 Oximetry 04/06/17 09:14 Temperature Pulse Rate Respiratory 16 Rate Blood Pressure (mmHg) O2 Sat by Pulse Oximetry Intake and Output Last 24 Hours 04/04/17 04/05/17 04/06/17 04/07/17 06:59 06:59 06:59 06:59 Intake Total 0 1275 Output Total 1275 3482 200 Balance -1275 -2207 -200 Weight 218 lb Intake: Oral 0 1275 Output: Chest Tube #1 1075 1407 Urine 200 2075 200 Other: Estimated Void Large # Voids 3 Chest tube (original Pleurevac) has a total of ~ 1300 ml, therefore, only ~ 100 ml drainage over past 24 hr. No air leak. Heart: reg Lungs: clear upper sidhu; few R basilar crackles Labs: Laboratory Tests 04/05/17 04/06/17 04:31 05:24 WBC 6.5 Hgb 11.8 L 12.1 L <Bharat Garnica - Last Filed: 04/06/17 10:21> Progress Note - Progress Note Note: I saw and evaluated the patient. Agree with NPP's note.
[2017-04-06] MEDS: HYDROmorphone INJ* 1 MG/ML CARPUJECT SYRINGE IV PRN (09:59)
--- NOTE | 2017-04-06 12:33 | RAD ---
Indication: Post RIGHT chest removal. History of trauma with RIGHT rib fractures and hemothorax. Atrial fibrillation. Comparison: April 04, [address] and April 05, 2017 chest radiograph. Technique: Upright AP 1105 hours Report: Previous RIGHT chest tube has been removed. Small RIGHT pneumothorax with apical pleural line at level of the second posterior intercostal space. Negative for mediastinal shift. Small RIGHT pleural effusion tracking into the RIGHT minor fissure. Grossly nondisplaced fractures of the RIGHT sixth, seventh, eighth, and ninth ribs noted. RIGHT lateral chest wall soft tissue swelling and subcutaneous emphysema. Upper normal heart size. Accounting for atelectasis and portable technique the central pulmonary vasculature is unremarkable. IMPRESSION: Small RIGHT pneumothorax with apical pleural line at level of the second posterior intercostal space. Negative for mediastinal shift.
[2017-04-06] MEDS ORDERED: Calcium Carbonate CHEW TAB* 500 MG (TUMS) PO PRN (14:57)
--- NOTE | 2017-04-06 15:04 | PN ---
Progress Note - Progress Note Date of Service: 04/06/17 Note: CXR reviewed. Small apical R PTX noted. Discussed with DR. Garnica, who recommended keeping patient at surgical floor over night. Went through details with patient. He agreed to stay overnight and to repeat CXR in AM. Will resume Claritin and Tums Xarelto on , will resume on Sunday04/10/2017 Likely home 04/07/17
[2017-04-06] MEDS: Cetirizine* 10 MG TAB PO SCH (15:28)
[2017-04-06] MEDS: HYDROcodone/ACETAMIN 5-325 MG* 1 TAB PO PRN (18:35)
[2017-04-06] MEDS ORDERED: Cetirizine* 10 MG TAB PO ONE (23:00)
[2017-04-07] MEDS: HYDROcodone/ACETAMIN 5-325 MG* 1 TAB PO SCH ×3 (02:20→10:08)
[2017-04-07] MEDS: HYDROcodone/ACETAMIN 5-325 MG* 1 TAB PO PRN (07:44)
[2017-04-07 08:15] VITALS: BP 115/70
--- NOTE | 2017-04-07 08:22 | RAD ---
HISTORY: Follow-up right pneumothorax COMPARISONS: April 06, 2017 at 11:05 AM and 15 and VIEWS: 4: Frontal dual-energy and lateral views of the chest. FINDINGS: CARDIOMEDIASTINAL SILHOUETTE: The cardiomediastinal silhouette is normal. WALLACE: The wallace are normal. PLEURA: There is no appreciable residual pneumothorax. LUNG PARENCHYMA: There is opacification of the lung bases bilaterally. ABDOMEN: The upper abdomen is clear. There is no subphrenic gas. BONES AND SOFT TISSUES: There is a small amount of subcutaneous emphysema OTHER: None. IMPRESSION: 1. NO APPRECIABLE RESIDUAL PNEUMOTHORAX. 2. LINEAR ATELECTASIS OF THE LUNG BASES BILATERALLY.
[2017-04-07] MEDS: Cetirizine* 10 MG TAB PO SCH (08:28)
[2017-04-07] MEDS: Docusate CAP* 100 MG PO SCH (08:28)
[2017-04-07] MEDS: Atenolol TAB* 50 MG PO SCH (08:28)
--- NOTE | 2017-04-07 08:32 | PN ---
Progress Note - Progress Note Date of Service: 04/07/17 Note: HD#3 s/p right hemothorax, rib fractures. VS OK, SaO2 93% on RA. Using IS Pain control OK on oral meds. Lungs generally clear, adequate aeration. Some splinting on right. CXR--No Ptx Discharge home. Instructed Discussed constipation, when to re-start xarelto and CPAP F/U in office
== END 2017-04-07 10:10 | disposition home or self-care (01) | DRG 135 ==
LOC: ED 18:31 → SSU 22:39
PROVIDERS: ADMIT Surgery; ATTEND Surgery
PROC: 0W9930Z Drainage of Right Pleural Cavity with Drainage Device, Percutaneous Approach (ICD-10-PCS; principal; 2017-04-04)
DX: S27.2XXA Traumatic hemopneumothorax, initial encounter (principal); S22.41XA Multiple fractures of ribs, right side, initial encounter for closed fracture; I48.0 Paroxysmal atrial fibrillation; T79.7XXA Traumatic subcutaneous emphysema, initial encounter; W00.0XXA Fall on same level due to ice and snow, initial encounter; Y92.9 Unspecified place or not applicable; Z79.01 Long term (current) use of anticoagulants; E83.110 Hereditary hemochromatosis; I10 Essential (primary) hypertension; E78.00 Pure hypercholesterolemia, unspecified; G47.33 Obstructive sleep apnea (adult) (pediatric); Z79.82 Long term (current) use of aspirin; Z79.899 Other long term (current) drug therapy; Z88.6 Allergy status to analgesic agent; Z88.5 Allergy status to narcotic agent
CPT/HCPCS: 36415; 71045; 71046; 71250; 80048; 80053; 85025; 99285; A9270-GY; J1170; J2250; J3010

== ENCOUNTER 2019-01-01 18:14 | Emergency (ER) | payer MEDICARE ==
--- OUTSIDE RECORDS SUMMARY | 2019-01-01 18:56 | XMS REPORT | Continuity of Care Document ---
:1950 External Reference #:[id number] Author Name Litzy Campos DNP, RN, [employer]-[facility] (transmitted by agent of provider Violet Harvey) Address [address], [address] [place] [address] Care Team Providers Name Role Phone Harsh Harman M.D. - Family Medicine Care Team Information Cash Application Clerk Bartolo Peralta MD - Gastroenterology Care Team Information Cash Application Clerk Jorge L Redman MD, DMD - Oral & Care Team Information Cash Application Clerk Maxillofacial Surgery Problems Active Problems Provider Date Atrial fibrillation Olga Cornejo M.D. Onset: 03/21/2013 Essential hypertension Olga Cornejo M.D. Onset: 03/21/2013 FH: Cardiovascular disease Olga Cornejo M.D. Onset: 09/15/2014 Paroxysmal atrial fibrillation Olga Cornejo M.D. Onset: 09/17/2015 Social History Type Date Description Comments Sex Unknown Tobacco Use Start: Unknown Never Smoked Cigarettes Smoking Status Reviewed: 11/06/18 Never Smoked Cigarettes ETOH Use Has consumed alcohol in DWI June 2013, CARS, the past off EtOH October 04, 2013. 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 Allergies, Adverse Reactions, Alerts Active Allergies Reaction Severity Comments Date Morphine nausea, vomiting 03/19/2013 Ibuprofen irregular heart beat per patient 10/15/2013 Amoxicillin RASH per patient medication list 09/17/2015 Naltrexone increase fatigue discontinued Dr. Harman 03/09/2017 Medications Active Medications SIG Qnty Indications Ordering Provider Date Enalapril Maleate 1 tab PO qhs. 90tabs I10 Olgadi Cornejo, 04/26/2018 5mg M.D. Tablets Xarelto 1 by mouth every 90tabs I48.91 Olga Chantal, 03/21/2013 20mg Tablets day M.D. Atenolol 1 1/2 tab by 135tabs Olgadi Cornejo, 50mg Tablets mouth every day M.D. in the morning Aspirin Childrens 1 by mouth every 90units Unknown 81mg day Am Chewtabs Cpap uses at night Unknown Device Cetirizine HCL 1 by mouth daily Unknown 10mg as needed ( Tablets started taking Jan 2017, last taken 3 weeks ago) Atorvastatin Calcium Take One Tablet Unknown By Mouth Every 20mg Tablets Day Fluticasone as needed 16units Unknown Propionate 50mcg/Act Suspension Omeprazole 1 by mouth every Unknown 40mg day Capsules DR Mon Description No Information Available Vital Signs Date Vital Result Comment 11/06/2018 9:26am Height 70 inches 5'10" Weight 207.00 lb Heart Rate 72 /min BP Systolic Sitting 122 mmHg Lue large cuff BP Diastolic Sitting 78 mmHg Lue large cuff Respiratory Rate 12 /min O2 % BldC Oximetry 93 % BMI (Body Mass Index) 29.7 kg/m2 06/14/2018 10:19am Height 70 inches 5'10" Weight 220.38 lb Heart Rate 56 /min BP Systolic Sitting 144 mmHg left arm BP Diastolic Sitting 90 mmHg left arm BP Systolic Standing 146 mmHg left arm BP Diastolic Standing 88 mmHg left arm BP Systolic Recheck 130 mmHg recheck after resting BP Diastolic Recheck 88 mmHg recheck after resting BMI (Body Mass Index) 31.6 kg/m2 Ejection Fraction 60-65% Echocardiogram 09/24/2015 Results Description No Information Available Procedures Description No Information Available Medical Devices Description No Information Available Encounters Type Date Location Provider Dx Diagnosis Office Visit 06/14/2018 [facility] Bisi Tierney, I48.0 Paroxysmal atrial 10:30a N.P. fibrillation E78.5 Hyperlipidemia, unspecified I10 Essential (primary) hypertension G47.33 Obstructive sleep apnea (adult) (pediatric) Assessments Date Code Description Provider 11/06/2018 G47.33 Obstructive sleep apnea (adult) Litzy Campos DNP, RN, JONNY-ELISE (pediatric) 06/14/2018 I48.0 Paroxysmal atrial fibrillation Bisi Tierney, N.P. 06/14/2018 E78.5 Hyperlipidemia, unspecified Bisi Tierney N.P. 06/14/2018 I10 Essential (primary) hypertension Bisi Tierney N.P. 06/14/2018 G47.33 Obstructive sleep apnea (adult) Bisi Tierney, N.P. (pediatric) Plan of Treatment Future Appointment(s):01/29/2019 10:00 am - Litzy Campos DNP, RN, JONNY-BC at [facility]11/06/2018 - Litzy Campos DNP, RN, JONNY- BCG47.33 Obstructive sleep apnea (adult) (pediatric)Comments:2012 and was diagnosed with severe obstructive sleep apnea-AHI 36, O2 kashif 85%. On CPAP AHI 3.3/hourFollow up:3 monthsRecommendations:Continue PAP device, Benefitting and compliant with treatment. Due to noise of equipment and restless sleep recommend CPAP replacement (without humidifier as does not use) Cleaning Wipe off mask daily (baby wipe-no scent, or warm water) Clean mask, tubing, filter, and water chamber weekly in mild no scent dish soap and water. Hang to dry. If you have any sleepiness while driving you MUST avoid operating a vehicle or machinery. If you have difficulty with your equipment, or need to replace your mask or hoses, please contact your homecare agency. A weight change of 20 pounds or more may have an effect on your equipment; if you are experiencing problems please call for an appointment. If you haveany further questions, please call the [facility] at [phone]. Functional Status Description No Information Available Mental Status Description No Information Available Referrals Description No Information Available
--- NOTE | 2019-01-01 19:57 | ED ---
Neurological HPI - HPI Summary HPI Summary: 68 year old M brought to [facility] by EMS complains of sudden weakness and fatigue in his bilateral lower extremities and upper extremities at 16:30 today. The patient was climbing down a ladder from a tree stand when he reported being weak. He states he was able to climb down from the ladder, walk about 100 yards to the back door of his house where he collapsed again. Once he was able to get inside the house, the patient called EMS. He states he was able to walk to the EMS stretcher. The patient states this episode lasted 15-20 minutes. Sx have completely resolved. He has no weakness currently. The patient rates the pain 0/ 10 in severity. He recalls a similar episode 5 years ago when he was walking back to his bedroom after using the bathroom in the middle of the night and suddenly developed weakness and collapsed on to the hallway floor. He reports having a history of A-Fib for which he takes Xarelto which he took today. Today' s sx not similar to A-Fib sx. No palpitations before developing weakness. The patient denies palpitations, shortness of breath, chest pain, nausea, swelling in legs, and cough. Symptoms aggravated by nothing. Symptoms alleviated by nothing. - History of Current Complaint Chief Complaint: EDWeakness Stated Complaint: WEAKNESS PER EMS Time Seen by Provider: 01/01/19 18:46 Hx Obtained From: Patient Onset/Duration: Sudden Onset, Started hours ago, Resolved Timing: Constant Current Severity: None Neurological Deficit Location: Generalized Pain Intensity: 0 Pain Scale Used: 0-10 Numeric Aggravating: Nothing Alleviating: Nothing Similar Episode/Dx as: 5 years ago - Additional Pertinent History Primary Care Physician: [id number] - Allergy/Home Medications Allergies/Adverse Reactions: Allergies Allergy/AdvReac Type Severity Reaction Status Date / Time ibuprofen AdvReac Mild Palpitation Verified 04/05/17 09:48 s morphine AdvReac Mild Nausea And Verified 04/05/17 09:48 Vomiting Home Medications: Home Medications Aspirin EC TAB* [Ecotrin EC Low Dose 81 MG*] 81 mg PO DAILY 01/01/19 [History Confirmed 01/01/19] Atorvastatin* [Lipitor*] 20 mg PO DAILY 01/01/19 [History Confirmed 01/01/19] Enalapril TAB* [Vasotec TAB*] 5 mg PO DAILY 01/01/19 [History Confirmed 01/01/19 ] Omeprazole (Nf) [Prilosec (NF)] 40 mg PO DAILY 01/01/19 [History Confirmed 01/01] PMH/Surg Hx/FS Hx/Imm Hx Endocrine/Hematology History: Reports: Hx Blood Disorders - hemachromatosis Denies: Hx Anticoagulant Therapy, Hx Blood Transfusions, Hx Bone Marrow Disease, Hx Diabetes, Hx Systemic Lupus Erythematosus, Hx Sickle Cell Disease, Hx Anemia, Hx Unexplained Bleeding Cardiovascular History: Reports: Hx Hypercholesterolemia, Hx Hypertension - ON MEDS, Other Cardiovascular Problems/Disorders - A FIB, CARDIOVERSION X 2 Denies: Hx Cardiac Arrest, Hx Cardiomegaly, Hx Coronary Artery Disease, Hx Deep Vein Thrombosis, Hx Embolism, Hx Pacemaker/ICD, Hx Peripheral Vascular Disease, Hx Rheumatic Fever Respiratory History: Reports: Hx Sleep Apnea, Other Respiratory Problems/ Disorders - PAIN RIGHT EAR. RIGHT CHEST TUBE 03/2017 Denies: Hx Asthma, Hx Chronic Bronchitis, Hx Chronic Obstructive Pulmonary Disease (COPD), Hx Cystic Fibrosis, Hx Lung Cancer, Hx Pleural Effusion, Hx Pneumonia, Hx Pulmonary Edema, Hx Pulmonary Embolism, Hx Seasonal Allergies Musculoskeletal History: Reports: Hx Back Problems - "Lower back pain" due to one hour commute to work Sensory History: Reports: Hx Cataracts - RIGHT EYE, Hx Contacts or Glasses - READING GLASSES, Hx Vision Problem - vision chgs when iron level go up Denies: Hx Eye Injury, Hx Eye Prosthesis, Hx Glaucoma, Hx Macular Degeneration, Hx Deafness, Hx Hearing Aid, Hx Hearing Problem Opthamlomology History: Reports: Hx Cataracts - RIGHT EYE, Hx Contacts or Glasses - READING GLASSES, Hx Vision Problem - vision chgs when iron level go up Denies: Hx Eye Injury, Hx Eye Prosthesis, Hx Glaucoma, Hx Macular Degeneration Neurological History: Reports: Other Neuro Impairments/Disorders - Surgical History Surgery Procedure, Year, and Place: [place] [place] [facility] [place] LEFT EYE RETINAL TEAR, [place]2. [place] 09[place]27/06[place] [facility] [place] APPENDECTOMY, AGE 14, [facility]. LEFT WRIST, [facility], AGE 14 OR 15. WISDOM TEETH, AGE 21. Hx Anesthesia Reactions: Yes - "WIth my cornea operation the doctor was merrick HOT FLASHES, SWEATING, DIZZI - Immunization History Date of Tetanus Vaccine: unsure Date of Influenza Vaccine: none Infectious Disease History: No Infectious Disease History: Denies: Hx of Known/Suspected MRSA, Traveled Outside the [place] in Last 30 Days - Family History Known Family History: Positive: Cardiac Disease, Other - [place]. - Social History Alcohol Use: Daily Alcohol Amount: 5-6 daily. 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 (-) Distressed Skin: Warm, Dry HENT: Normocephalic; Atraumatic Eyes: Conjunctiva normal Neck: Musculoskeletal ROM normal neck. (-) JVD, (-) Stridor, (-) Tracheal deviation Cardio: Rhythm regular, rate normal, Heart sounds normal; Intact distal pulses; The pedal pulses are 2+ and symmetric. Radial pulses are 2+ and symmetric. (-) Murmur Pulmonary/Chest wall: Effort normal. (-) Respiratory distress, (-) Wheezes, (-) Rales Abd: Soft, (-) tenderness, (-) Distension, (-) Guarding, (-) Rebound Musculoskeletal: (-) Edema Lymph: (-) Cervical adenopathy Neuro: Alert, Oriented x3 Psych: Mood and affect Normal NIH: 0 Triage Information Reviewed: Yes Vital Signs On Initial Exam: Initial Vitals Temp Pulse Resp BP Pulse Ox 99.3 F 68 15 152/90 93 01/01/19 18:24 01/01/19 18:24 01/01/19 18:24 01/01/19 18:24 01/01/19 18:24 Vital Signs Reviewed: Yes Procedures - Sedation Patient Received Moderate/Deep Sedation with Procedure: No Diagnostics - Vital Signs Vital Signs Temp Pulse Resp BP Pulse Ox 01/01/19 19:00 65 14 126/70 91 01/01/19 18:31 66 23 127/73 92 01/01/19 18:29 68 19 93 01/01/19 18:24 99.3 F 68 15 152/90 93 - Laboratory Result Diagrams: 01/01/19 20:23 01/01/19 20:23 Lab Statement: Any lab studies that have been ordered have been reviewed, and results considered in the medical decision making process. - EKG 20:01 Cardiac Rate: NL EKG Rhythm: Sinus Rhythm Summary of EKG Findings: NSR, 61bpm, 1st degree AV block, prolonged AR, normal QRS, QTc, ST and T waves, inversion of T waves in V2, flattening of T waves in AVF, incomplete RBBB, overall nonspecific EKG NIH Scale - NIH Scale Level of Consciousness: Alert/Keenly Responsive Ask Patient the Month and His/Her Age: Both Correct Ask Pt to Open/Close Eyes and Database Marketing Analyst/Release Non-Paretic Hand: Both Correctly Best Gaze (Only Horizontal Eye Movement): Normal Visual Field Testing: No Visual Loss Facial Paresis-Pt to Smile & Close Eyes or Grimace Symmetry: Normal/Symmetrical Motor Function - Right Arm: No Drift-Holds 10 Seconds Motor Function - Left Arm: No Drift-Holds 10 Seconds Motor Function - Right Leg: No Drift-Holds 10 Seconds Motor Function - Left Leg: No Drift-Holds 10 Seconds Limb Ataxia-Must be out of Proportion to Weakness Present: Absent Sensory (Use Pinprick to Test Arms/Legs/Trunk/Face): Normal Best Language (Describe Picture, Name Items): No Aphasia Dysarthria (Read Several Words): Normal Extinction and Inattention: No Abnormality Total Score: 0 Course/Dx - Course Course Of Treatment: 68 year old M brought to [facility] by EMS complains of sudden weakness and fatigue in his bilateral lower extremities and upper extremities at 16:30 today while climbing down a ladder from a tree stand. The patient states this episode lasted 15-20 minutes. Sx have completely resolved. He has no weakness currently. Hx atrial fibrillation. Physical exam findings: unremarkable. NIH 0. Bloodwork results with no significant abnormalities except for Hgb 12.6 L, Hct 37 L, RDW 17 H, Plt Count 98 L. An EKG shows NSR, 61bpm, 1st degree AV block, prolonged AR, normal QRS, QTc, ST and T waves, inversion of T waves in V2, flattening of T waves in AVF, incomplete IBBB, overall nonspecific EKG. Patient was diagnosed with near syncope and general weakness. Patient will be discharged home with a referral to Dr.John Harman. Patient was instructed to return to Emergency Department for new or worsening symptoms. Patient understands and is agreeable to this plan. - Diagnoses Provider Diagnoses: Near syncope, Generalized weakness Discharge ED - Sign-Out/Discharge Documenting (check all that apply): Patient Departure - Discharge - Discharge Plan Condition: Stable Disposition: HOME Patient Education Materials: Weakness (ED), Near Syncope (ED) Print Language: WALLISIAN Referrals: Harsh Harman MD [Primary Care Provider] - - Billing Disposition and Condition Condition: STABLE Disposition: Home - Attestation Statements Document Initiated by Hernestoibchristiana: Yes Documenting Scribe: Ana Rolon Provider For Whom Marly is Documenting (Include Credential): Adilene Gibbs MD Scribe Attestation: IIsidoro Tiffany Liu, scribed for Adilene Hsieh MD on at [id number]. Scribe Documentation Reviewed: Yes Provider Attestation: The documentation as recorded by the hernestoibIsidoro villeda Tiffany Liu accurately reflects the service I personally performed and the decisions made by , Adilene Hsieh MD Status of Scribe Document: Viewed
[2019-01-01 20:30] LABS: ABS Eosinophils 0.1 10^3/ul (0-0.6); ABS Lymphocytes 1.6 10^3/ul (1.0-4.8); ABS Monocytes 0.5 10^3/ul (0-0.8); ABS Neutrophils 1.7 10^3/ul (1.5-7.7); Eosinophil % 3.2 %; Hematocrit 37 % (42-52); Hemoglobin 12.6 g/dL (14.0-18.0); Lymphocyte % 41.2 %; Mean Corpuscular HGB Conc 34 g/dL (31-36); Mean Corpuscular Hemoglobin 28 pg (27-31); Mean Corpuscular Volume 83 fL (80-94); Mean Platelet Volume 8.5 fL (7.4-10.4); Nucleated Red Blood Cells % 0.1; Platelet Count 98 10^3/uL (150-450); Red Blood Count 4.48 10^6 /uL (4.18-5.48); Red Cell Distribution Width 17 % (10-15); White Blood Count 3.9 10^3/uL (3.5-10.8)
[2019-01-01 20:45] LABS: Albumin 4.2 g/dL (3.2-5.2); Albumin/Globulin Ratio 1.2 (1-3); Calcium 9.6 mg/dL (8.6-10.3); EGFR African American 201.3 (>60); EGFR Non-African American 166.4 (>60); Globulin 3.5 g/dL (2-4); Potassium 3.7 mmol/L (3.5-5.0); Total Bilirubin 0.6 mg/dL (0.2-1.0); Total Protein 7.7 g/dL (6.4-8.9)
[2019-01-01 20:47] LABS: Troponin I 0.01 ng/mL (<0.04)
[2019-01-01 21:49] VITALS: BP 125/75
== END 2019-01-01 21:48 | disposition home or self-care (01) ==
LOC: ED 18:14
DX: R53.1 Weakness (principal); R55 Syncope and collapse; I48.91 Unspecified atrial fibrillation; E78.00 Pure hypercholesterolemia, unspecified; I10 Essential (primary) hypertension; Z79.01 Long term (current) use of anticoagulants; Z79.82 Long term (current) use of aspirin; Z79.899 Other long term (current) drug therapy; Z88.6 Allergy status to analgesic agent; Z88.5 Allergy status to narcotic agent
CPT/HCPCS: 36415; 80053; 84484; 85025; 93005; 99282

== ENCOUNTER 2021-06-07 06:35 | Inpatient (IN) ==
[2021-06-07] MEDS ORDERED: NS 0.9% 1000 ml BAG 1,000 ML IV ONE (06:38)
[2021-06-07] MEDS ORDERED: Iodixanol (CONTRAST) 320 MG/ML 100 ML SDV IV ONE (06:54)
[2021-06-07 06:55] LABS: ABS Lymphocytes 0.4 10^3/ul (1.0-4.8); ABS Monocytes 0.4 10^3/ul (0-0.8); ABS Neutrophils 4.1 10^3/ul (1.5-7.7); Eosinophil % 0.1 %; Hematocrit 36 % (42-52); Hemoglobin 11.6 g/dL (14.0-18.0); Lymphocyte % 8.8 %; Mean Corpuscular HGB Conc 33 g/dL (31-36); Mean Corpuscular Hemoglobin 26 pg (27-31); Mean Corpuscular Volume 79 fL (80-94); Mean Platelet Volume 9.1 fL (7.4-10.4); Platelet Count 64 10^3/uL (150-450); Red Blood Count 4.51 10^6 /uL (4.18-5.48); Red Cell Distribution Width 19 % (10-15)
[2021-06-07 07:01] LABS: Activated Partial Thrombo Time 31.4 seconds (26.0-38.0); INR 1.23 (0.86-1.15)
[2021-06-07 07:18] LABS: ALT 80 U/L (7-52); AST 135 U/L (13-39); Albumin 4.1 g/dL (3.2-5.2); Albumin/Globulin Ratio 1.2 (1-3); Alkaline Phosphatase 68 U/L (35-149); Anion Gap 14 mmol/L (2-11); Blood Urea Nitrogen 16 mg/dL (6-24); CO2 Carbon Dioxide 20 mmol/L (22-32); Calcium 9.5 mg/dL (8.6-10.3); Chloride 98 mmol/L (101-111); Cholesterol 151 mg/dL; Globulin 3.5 g/dL (2-4); Glucose 194 mg/dL (70-100); HDL Cholesterol 47.9 mg/dL; High Sens Troponin Baseline 9 pg/mL (<20); LDL Cholesterol 90 mg/dL; Potassium 3.5 mmol/L (3.5-5.0); Sodium 132 mmol/L (135-145); Total Protein 7.6 g/dL (6.4-8.9); Triglycerides 67 mg/dL; eGFR CKD-EPI 103.5 (>60)
[2021-06-07] MEDS ORDERED: LORazepam 2 mg VIAL 1 ml ONE ×2 (07:19→15:09)
[2021-06-07] MEDS ORDERED: LORazepam 2 mg VIAL 1 ml IV PUSH ONE ×2 (07:24→15:07)
[2021-06-07] MEDS ORDERED: Lorazepam PYXIS KEY PRN ×2 (07:24→15:07)
[2021-06-07] MEDS ORDERED: levETIRAcetam IV 1,500 MG in NS 0.9% 100 ml BAG 100 ML IVPB ONE (08:14)
[2021-06-07] MEDS ORDERED: levETIRAcetam 500 MG IVPREMIX 500 MG/100 ML BAG IV ONE (08:21)
[2021-06-07 08:38] LABS: High Sensitivity Troponin 1 Hr 14 pg/mL (<20)
[2021-06-07] MEDS ORDERED: levETIRAcetam 500 MG IVPREMIX 500 MG/100 ML BAG IV SCH (09:00)
[2021-06-07] MEDS ORDERED: Thiamine 100 MG/ML 2 ml VIAL 100 MG, Folic Acid IV 1 MG, Multiple Vitamin IV ADULT 10 M... IV ONE (09:00)
[2021-06-07] MEDS ORDERED: Ondansetron 4 mg VIAL 2 MG/ML 2 ml VIAL IV PRN (09:16)
[2021-06-07 10:23] LABS: Alcohol, S < 13 mg/dL (<13)
[2021-06-07] MEDS ORDERED: Thiamine 100 MG/ML 2 ml VIAL 250 MG in NS 0.9% 100 ml BAG 100 ML IV SCH (12:00)
[2021-06-07] MEDS ORDERED: Piperacillin/Tazobac ADVAN 3.375 GM in NS 0.9% 100 ml BAG 100 ML IV ONE (12:04)
[2021-06-07] MEDS ORDERED: Acetaminophen IV 1 GM/100ML 100 ML IV PRN (12:48)
[2021-06-07] MEDS ORDERED: Zosyn per Pharmacy NOTE FOLLOW UP SCH (13:00)
[2021-06-07 13:42] LABS: Urine Appearance Clear; Urine Bilirubin Negative (Negative); Urine Blood Negative (Negative); Urine Color Yellow; Urine Glucose Negative (Negative); Urine Ketones 1+ (Negative); Urine Nitrite Negative (Negative); Urine Protein 2+(100 mg/dL) (Negative); Urine Urobilinogen Negative (Negative)
[2021-06-07 13:52] LABS: Urine Bacteria Absent (Absent); Urine Red Blood Cell Trace(0-2/hpf) (Absent); Urine Squamous Epithelial Cell Present (Absent); Urine White Blood Cell Trace(0-5/hpf) (Absent)
[2021-06-07 14:40] LABS: Folate > 20.00 ng/mL (5.90-24.80)
[2021-06-07 14:41] LABS: Vitamin B12 553 pg/mL (180-914)
[2021-06-07] MEDS: Heparin 5000 UNITS/ML 1 mL VIAL SUBCUT SCH ×2 (14:44→21:18)
[2021-06-07] MEDS: Carbidopa/Levodop 25/100 MG TAB PO SCH ×2 (14:45→19:53)
[2021-06-07] MEDS ORDERED: Lorazepam PYXIS KEY ONE (15:08)
[2021-06-07] MEDS: ZOSYN 3.375 GM Q8H per EXTENDED INFUSION IV SCH (18:15)
[2021-06-07] MEDS: levETIRAcetam IV 750 MG in NS 0.9% 100 ml BAG 100 ML IVPB SCH (21:18)
[2021-06-07] MEDS: LORazepam 2 mg VIAL 1 ml IV PUSH SCH (23:27)
[2021-06-08] MEDS: LORazepam 2 mg VIAL 1 ml IV PUSH SCH ×3 (01:41→06:08)
[2021-06-08] MEDS: ZOSYN 3.375 GM Q8H per EXTENDED INFUSION IV SCH ×3 (02:11→17:40)
[2021-06-08 04:25] LABS: ABS Lymphocytes 0.9 10^3/ul (1.0-4.8); ABS Monocytes 0.6 10^3/ul (0-0.8); ABS Neutrophils 3.7 10^3/ul (1.5-7.7); Eosinophil % 0.3 %; Hematocrit 32 % (42-52); Hemoglobin 10.3 g/dL (14.0-18.0); Lymphocyte % 18.1 %; Mean Corpuscular HGB Conc 32 g/dL (31-36); Mean Corpuscular Hemoglobin 25 pg (27-31); Mean Corpuscular Volume 78 fL (80-94); Mean Platelet Volume 8.7 fL (7.4-10.4); Platelet Count 52 10^3/uL (150-450); Red Blood Count 4.11 10^6 /uL (4.18-5.48); Red Cell Distribution Width 19 % (10-15); White Blood Count 5.2 10^3/uL (3.5-10.8)
[2021-06-08 04:44] LABS: ALT 41 U/L (7-52); Albumin 3.5 g/dL (3.2-5.2); Albumin/Globulin Ratio 1.2 (1-3); Alkaline Phosphatase 48 U/L (35-149); Blood Urea Nitrogen 10 mg/dL (6-24); CO2 Carbon Dioxide 24 mmol/L (22-32); Calcium 8.3 mg/dL (8.6-10.3); Chloride 100 mmol/L (101-111); Globulin 2.9 g/dL (2-4); Glucose 99 mg/dL (70-100); Magnesium 1.6 mg/dL (1.9-2.7); Sodium 133 mmol/L (135-145); Total Protein 6.4 g/dL (6.4-8.9)
[2021-06-08 04:50] LABS: Anion Gap 9 mmol/L (2-11)
[2021-06-08 05:49] LABS: Potassium Redraw 2.9 mmol/L (3.5-5.0)
[2021-06-08] MEDS: Heparin 5000 UNITS/ML 1 mL VIAL SUBCUT SCH (06:25)
[2021-06-08] MEDS ORDERED: Magnesium Sulfate 2 gm BAG 2 GM/50 ML BAG IVPB ONE (07:21)
[2021-06-08] MEDS ORDERED: Potassium Chloride LIQUID 20 MEQ/15 ML LIQUID PO ONE (07:22)
[2021-06-08] MEDS: Aspirin EC 81 mg TAB.EC (enteric coated) PO SCH (07:33)
[2021-06-08] MEDS: Multivitamins/Minerals TAB PO SCH (07:34)
[2021-06-08] MEDS: Carbidopa/Levodop 25/100 MG TAB PO SCH (07:34)
[2021-06-08] MEDS: KCL 20 MEQ/100 ML IVPREMIX 20 MEQ/100 ML BAG IV SCH ×2 (07:52→10:26)
[2021-06-08] MEDS: Pantoprazole VIAL 40 MG VIAL IV SCH (07:52)
[2021-06-08] MEDS: levETIRAcetam IV 750 MG in NS 0.9% 100 ml BAG 100 ML IVPB SCH ×2 (07:57→21:32)
[2021-06-08] MEDS ORDERED: NS 0.9% w/ 20 Meq KCL 1000 ml 1,000 ML IV SCH (08:00)
[2021-06-08] MEDS ORDERED: Potassium Chloride IV 20 MEQ in Lactated Ringers 1000 ml BAG 1,000 ML IVPB SCH (08:00)
[2021-06-08] MEDS: CMCS: Carbidopa/Levodopa ODT (NF) 25/100 ODT SL SCH ×3 (08:23→21:32)
[2021-06-08] MEDS ORDERED: Carbidopa/Levodopa ODT (NF) 25/100 ODT SL SCH (09:00)
[2021-06-08] MEDS: D5W 1/2 NS 40 Meq KCL 1000 ml 1,000 ML IV SCH ×2 (10:27→23:13)
[2021-06-08 10:56] LABS: PCO2 Arterial 33 mmHg (35-45); PO2 Arterial 116 mmHg (80-100)
[2021-06-08] MEDS: Thiamine 100 MG/ML 2 ml VIAL 250 MG in NS 0.9% 100 ml BAG 100 ML IV SCH (12:28)
[2021-06-08] MEDS ORDERED: Lorazepam PYXIS KEY ONE (16:53)
[2021-06-08] MEDS ORDERED: LORazepam 2 mg VIAL 1 ml ONE (16:53)
[2021-06-08] MEDS ORDERED: LORazepam 2 mg VIAL 1 ml IV PUSH ONE (17:54)
[2021-06-08] MEDS ORDERED: Lorazepam PYXIS KEY PRN (17:54)
[2021-06-08] MEDS ORDERED: Dexmedetomidine 1,000 MCG in NS 0.9% 250 ml 240 ML IV SCH (18:00)
[2021-06-09] MEDS: ZOSYN 3.375 GM Q8H per EXTENDED INFUSION IV SCH ×2 (01:05→07:33)
[2021-06-09 05:40] LABS: ABS Eosinophils 0.1 10^3/ul (0-0.6); ABS Lymphocytes 1.1 10^3/ul (1.0-4.8); ABS Monocytes 0.4 10^3/ul (0-0.8); ABS Neutrophils 2.3 10^3/ul (1.5-7.7); Hematocrit 33 % (42-52); Hemoglobin 10.8 g/dL (14.0-18.0); Lymphocyte % 27.1 %; Mean Corpuscular HGB Conc 33 g/dL (31-36); Mean Corpuscular Hemoglobin 26 pg (27-31); Mean Corpuscular Volume 78 fL (80-94); Nucleated Red Blood Cells % 0.1; Platelet Count 45 10^3/uL (150-450); Red Blood Count 4.22 10^6 /uL (4.18-5.48); Red Cell Distribution Width 19 % (10-15); White Blood Count 3.9 10^3/uL (3.5-10.8)
[2021-06-09 06:03] LABS: Albumin 3.5 g/dL (3.2-5.2); Albumin/Globulin Ratio 1.2 (1-3); Calcium 8.5 mg/dL (8.6-10.3); Magnesium 1.8 mg/dL (1.9-2.7); Potassium 3.8 mmol/L (3.5-5.0); Total Bilirubin 1.5 mg/dL (0.2-1.0); Total Protein 6.5 g/dL (6.4-8.9)
[2021-06-09] MEDS: Pantoprazole VIAL 40 MG VIAL IV SCH (07:09)
[2021-06-09] MEDS ORDERED: Magnesium Sulfate 2 gm BAG 2 GM/50 ML BAG IVPB ONE (07:25)
[2021-06-09] MEDS ORDERED: Potassium Chlor 20 meq TAB.ER PO ONE (07:25)
[2021-06-09] MEDS: LORazepam 2 mg VIAL 1 ml IV PUSH SCH ×2 (07:37→16:59)
[2021-06-09] MEDS: Aspirin EC 81 mg TAB.EC (enteric coated) PO SCH (09:37)
[2021-06-09] MEDS: CMCS: Carbidopa/Levodopa ODT (NF) 25/100 ODT SL SCH (09:37)
[2021-06-09] MEDS: Multivitamins/Minerals TAB PO SCH (09:38)
[2021-06-09] MEDS ORDERED: Dexmedetomidine 1,000 MCG in NS 0.9% 250 ml 240 ML IV SCH (09:52)
[2021-06-09] MEDS ORDERED: KCL 20 MEQ/100 ML IVPREMIX 20 MEQ/100 ML BAG IV ONE (09:54)
[2021-06-09] MEDS: levETIRAcetam IV 750 MG in NS 0.9% 100 ml BAG 100 ML IVPB SCH ×2 (10:06→22:07)
[2021-06-09] MEDS: Thiamine 100 MG/ML 2 ml VIAL 250 MG in NS 0.9% 100 ml BAG 100 ML IV SCH (10:06)
[2021-06-09 12:45] LABS: Phosphorus 2.2 mg/dL (2.5-5.0)
[2021-06-09] MEDS ORDERED: Potassium Phosphate IV 15 MMOLE in NS 0.9% 250 ml 250 ML IVPB ONE (14:00)
[2021-06-09] MEDS: Carbidopa/Levodop 25/100 MG TAB G TUBE SCH ×2 (14:07→23:06)
[2021-06-10 04:29] LABS: ABS Lymphocytes 0.7 10^3/ul (1.0-4.8); ABS Monocytes 0.3 10^3/ul (0-0.8); ABS Neutrophils 2.4 10^3/ul (1.5-7.7); Eosinophil % 1.3 %; Hematocrit 35 % (42-52); Hemoglobin 11.3 g/dL (14.0-18.0); Lymphocyte % 20.8 %; Mean Corpuscular HGB Conc 33 g/dL (31-36); Mean Corpuscular Hemoglobin 26 pg (27-31); Mean Corpuscular Volume 78 fL (80-94); Platelet Count 48 10^3/uL (150-450); Red Blood Count 4.42 10^6 /uL (4.18-5.48); Red Cell Distribution Width 19 % (10-15); White Blood Count 3.6 10^3/uL (3.5-10.8)
[2021-06-10 04:59] LABS: Albumin 3.5 g/dL (3.2-5.2); Albumin/Globulin Ratio 1.2 (1-3); Calcium 8.5 mg/dL (8.6-10.3); Magnesium 1.8 mg/dL (1.9-2.7); Potassium 3.4 mmol/L (3.5-5.0); Total Bilirubin 1.4 mg/dL (0.2-1.0); Total Protein 6.5 g/dL (6.4-8.9); eGFR CKD-EPI 114.8 (>60)
[2021-06-10] MEDS: Pantoprazole VIAL 40 MG VIAL IV SCH (09:01)
[2021-06-10] MEDS: Multivitamins/Minerals TAB PO SCH (09:01)
[2021-06-10] MEDS: Carbidopa/Levodop 25/100 MG TAB G TUBE SCH ×3 (09:02→20:18)
[2021-06-10] MEDS: levETIRAcetam IV 750 MG in NS 0.9% 100 ml BAG 100 ML IVPB SCH (09:02)
[2021-06-10] MEDS ORDERED: Potassium Chloride LIQUID 20 MEQ/15 ML LIQUID PO ONE (09:51)
[2021-06-10] MEDS ORDERED: Magnesium Sulfate 2 gm BAG 2 GM/50 ML BAG IVPB ONE (10:00)
[2021-06-10] MEDS: Thiamine 100 MG/ML 2 ml VIAL 250 MG in NS 0.9% 100 ml BAG 100 ML IV SCH (12:06)
[2021-06-11] MEDS: LORazepam 2 mg VIAL 1 ml IV PUSH SCH ×7 (00:28→22:55)
[2021-06-11] MEDS: Carbidopa/Levodop 25/100 MG TAB G TUBE SCH ×3 (08:14→20:44)
[2021-06-11] MEDS: Multivitamins/Minerals TAB PO SCH (08:16)
[2021-06-11 09:41] LABS: Hematocrit 36 % (42-52); Hemoglobin 11.6 g/dL (14.0-18.0); Mean Corpuscular HGB Conc 32 g/dL (31-36); Mean Corpuscular Hemoglobin 25 pg (27-31); Mean Corpuscular Volume 78 fL (80-94); Mean Platelet Volume 8.7 fL (7.4-10.4); Platelet Count 95 10^3/uL (150-450); Red Blood Count 4.58 10^6 /uL (4.18-5.48); Red Cell Distribution Width 20 % (10-15); White Blood Count 4.7 10^3/uL (3.5-10.8)
[2021-06-11 09:42] LABS: Calcium 9.6 mg/dL (8.6-10.3); Magnesium 1.7 mg/dL (1.9-2.7); eGFR CKD-EPI 112.5 (>60)
[2021-06-11] MEDS ORDERED: Magnesium Sulfate 2 gm BAG 2 GM/50 ML BAG IV ONE (13:30)
[2021-06-11] MEDS ORDERED: Dextran 70/Hypromellose Tears Eye Drops 15 ml BTL (for Artificials Tears) BOTH EYES PRN (14:05)
[2021-06-11] MEDS ORDERED: Magnesium Sulfate 1 GM IV 1 GM/100 ML BAG IV ONE (15:30)
[2021-06-12] MEDS: LORazepam 2 mg VIAL 1 ml IV PUSH SCH ×4 (00:43→10:01)
[2021-06-12] MEDS: Multivitamins/Minerals TAB PO SCH (09:59)
[2021-06-12] MEDS: Carbidopa/Levodop 25/100 MG TAB G TUBE SCH ×3 (10:00→20:30)
[2021-06-13 05:50] LABS: Hematocrit 34 % (42-52); Mean Corpuscular HGB Conc 33 g/dL (31-36); Mean Corpuscular Hemoglobin 26 pg (27-31); Mean Corpuscular Volume 79 fL (80-94); Mean Platelet Volume 8.7 fL (7.4-10.4); Platelet Count 98 10^3/uL (150-450); Red Cell Distribution Width 20 % (10-15); White Blood Count 4.2 10^3/uL (3.5-10.8)
[2021-06-13 06:23] LABS: Albumin 3.6 g/dL (3.2-5.2); Albumin/Globulin Ratio 1.2 (1-3); Calcium 9.4 mg/dL (8.6-10.3); Magnesium 1.7 mg/dL (1.9-2.7); Potassium 3.7 mmol/L (3.5-5.0); Total Bilirubin 1.5 mg/dL (0.2-1.0); Total Protein 6.6 g/dL (6.4-8.9); eGFR CKD-EPI 113.2 (>60)
[2021-06-13] MEDS: Carbidopa/Levodop 25/100 MG TAB G TUBE SCH ×3 (08:46→23:22)
[2021-06-13] MEDS: Multivitamins/Minerals TAB PO SCH (08:46)
[2021-06-13 15:45] LABS: Rapid COVID-19 Molecular Undetected (Undetected)
[2021-06-13] MEDS ORDERED: Iron Sucrose 200 MG in NS 0.9% 100 ml BAG 100 ML IVPB ONE (18:45)
[2021-06-14] MEDS ORDERED: Iron Sucrose 200 MG in NS 0.9% 100 ml BAG 100 ML IVPB ONE (08:00)
[2021-06-14] MEDS: Carbidopa/Levodop 25/100 MG TAB G TUBE SCH (09:16)
[2021-06-14] MEDS: Multivitamins/Minerals TAB PO SCH (09:19)
[2021-06-14 13:36] VITALS: BP 95/60
== END 2021-06-14 14:39 | DRG 897 ==
LOC: ED 06:35 → EDHOLD 09:32 → SUATTDRO 09:32 → ICU 11:43 → MEDTELE 06-11 03:20
PROVIDERS: ADMIT Internal Medicine; ATTEND Internal Medicine